=== PATIENT | female | born 1955 | race Two or more races ===

== ENCOUNTER 2018-03-31 16:48 | Inpatient (IN) | payer OTHER ==
[~2018-03-31] VITALS: Ht 165.1 cm; Wt 95.2 kg
[~2018-03-31 16:48] MED LIST: AMLO10 PO; COLE1 PO; Cymbalta20 MG PO; ESOM20 PO; FARXIGA5 MG PO; FOLI1 PO; GLIP5 PO; HYOS.125; HYOSCYAMINE SULFATE; LEVSOD100 PO; LOPE2C PO; LOSA50 PO; MESA250ER PO; Nadolol40 MG PO; OXYB5 PO; PANT40 PO; POTA10T PO; RANI150 PO; VENL150ER PO
[2018-03-31 18:15] LABS: BASOPHILS ABSOLUTE AUTO 0.06 K/mm3 (0.00-0.23); BASOPHILS PERCENT AUTO 1 % (0-2); EOSINOPHILS ABSOLUTE AUTO 0.11 K/mm3 (0.00-0.68); EOSINOPHILS PERCENT AUTO 1 % (0-6); Hematocrit 41.6 % (33.0-51.0); Hemoglobin 13.6 g/dL (11.5-16.0); IMMATURE GRAN ABSOLUTE AUTO 0.03 K/mm3 (0.00-0.10); IMMATURE GRAN PERCENT AUTO 0 % (0-1); LYMPHOCYTES ABSOLUTE AUTO 1.81 K/mm3 (0.84-5.20); LYMPHOCYTES PERCENT AUTO 22 % (21-46); MONOCYTES ABSOLUTE AUTO 0.59 K/mm3 (0.16-1.47); MONOCYTES PERCENT AUTO 7 % (4-13); Mean Corpuscular HGB Conc 32.7 g/dL (31.5-36.5); Mean Corpuscular Volume 86 fL (80-100); Mean Platelet Volume 11.9 fL (9.1-12.4); NEUTROPHILS ABSOLUTE AUTO 5.49 K/mm3 (1.96-9.15); NEUTROPHILS PERCENT AUTO 68 % (41-73); Platelet Count 111 K/mm3 (150-400); RDW Coefficient Variation 15.3 % (11.7-14.2); RDW Standard Deviation 48.2 fL (35.1-46.3); Red Blood Cell Count 4.86 M/mm3 (3.80-5.20); White Blood Cell Count 8.09 K/mm3 (4.00-11.30)
[2018-03-31 18:46] LABS: Alanine Aminotransfer (ALT/SGP 36 U/L (12-78); Albumin, Blood 3.3 g/dL (3.4-5.0); Albumin/Globulin Ratio 0.7 (0.8-1.8); Alk Phos 127 U/L (50-136); Anion Gap 9 mmol/L (6-16); Aspartate Aminotrans (AST/SGOT 41 U/L (12-37); Bilirubin, Total 0.9 mg/dL (0.1-1.0); Blood Urea Nitrogen 8 mg/dL (8-24); CO2, Blood 24 mmol/L (21-32); Calcium, Blood 8.8 mg/dL (8.5-10.1); Chloride, Blood 110 mmol/L (98-108); Creatinine, Blood 0.66 mg/dL (0.40-1.00); Globulin, Blood 4.6 g/dL (2.2-4.0); Glomerular Filtration Rate >60 (60-); Glucose, Blood 125 mg/dL (70-99); Potassium, Blood 3.8 mmol/L (3.5-5.5); Sodium, Blood 143 mmol/L (136-145); Total Protein, Blood 7.9 g/dL (6.4-8.2); Troponin I <0.015 ng/mL (0.000-0.040)
[2018-03-31 21:18] LABS: Source, Urine Clean Catch
[2018-03-31 21:20] LABS: Bilirubin, Urine Neg (Neg); Blood, Urine 1+ (Neg); Glucose Qualitative, Urine Neg (Neg); Ketones, Urine Neg (Neg); Leukocyte Esterase, Urine Neg (Neg); Nitrite, Urine Neg (Neg); Protein, Urine Neg (Neg); Urobilinogen, Urine NORM (Normal)
[2018-03-31 21:22] LABS: Appearance, Urine Clear (Clear); Color, Urine Yellow (P-Yellow)
[2018-03-31 21:31] LABS: Bacteria Rare /hpf; Calcium Oxalate Crystals Few /hpf; Red Blood Cells, Urine 0-2 /hpf (0-2); Squamous Epithelial Cells Mod /hpf (Few); White Blood Cells, Urine Rare /hpf (0-5)
[2018-03-31 23:44] LABS: International Normalized Ratio 1.08; Prothrombin Time Results 11.4 Sec (9.7-11.5)
[2018-03-31 23:50] LABS: Triglycerides 125 mg/dL (30-160)
[2018-04-01 05:19] LABS: Alanine Aminotransfer (ALT/SGP 40 U/L (12-78); Albumin, Blood 2.9 g/dL (3.4-5.0); Albumin/Globulin Ratio 0.7 (0.8-1.8); Alk Phos 117 U/L (50-136); Anion Gap 7 mmol/L (6-16); Aspartate Aminotrans (AST/SGOT 49 U/L (12-37); Blood Urea Nitrogen 9 mg/dL (8-24); Bun/Creatinine Ratio 12.4 (12.0-20.0); CO2, Blood 25 mmol/L (21-32); Calcium, Blood 7.8 mg/dL (8.5-10.1); Chloride, Blood 113 mmol/L (98-108); Creatinine, Blood 0.72 mg/dL (0.40-1.00); Globulin, Blood 4.1 g/dL (2.2-4.0); Glomerular Filtration Rate >60 (60-); Glucose, Blood 142 mg/dL (70-99); Potassium, Blood 4.1 mmol/L (3.5-5.5); Sodium, Blood 145 mmol/L (136-145)
== END 2018-04-02 12:00 | disposition home or self-care (01) | DRG 385 ==
LOC: ER 16:48 → SURS 23:15
PROVIDERS: Emergency Medicine; Nurse Practitioner Acute Care; Physician Assistant; ADMIT Internal Medicine
DX: K50.012 Crohn's disease of small intestine with intestinal obstruction (principal); K85.90 Acute pancreatitis without necrosis or infection, unspecified; I10 Essential (primary) hypertension; K74.60 Unspecified cirrhosis of liver; E11.9 Type 2 diabetes mellitus without complications; E03.9 Hypothyroidism, unspecified; Z88.8 Allergy status to other drugs, medicaments and biological substances; Z87.891 Personal history of nicotine dependence
CPT/HCPCS: 36415; 74018; 74177; 80053; 81001; 82947; 83690; 84478; 84484; 85025; 85610; 93005; 93010; 96361; 96374; 96375; 96376; 99285-25; C9113; J1170; J2405; J7030; Q9967

== ENCOUNTER → 2019-07-10 | Outpatient (CLI) | payer OTHER ==
[~2019-07-10] MED LIST changes: +ALBU90OI INH; +AMLO5 PO; +CLON.1 PO; +DULO60 PO; +Estroven Regu400 MCG PO; +FARXIGA10 MG PO; +FEROSUL325 M1 PO; +GABA100 PO; +GLIP10 PO; +HYDCHL12.5 PO; +Lasix20 MG PO; +METO25 PO; +PARO20 PO; +PIOG30 PO; +POTCHL20ER PO; +XARELTO20 MG PO
== END | disposition home or self-care (01) ==
LOC: PLD 10:01 → LAB SHORT 10:01
DX: B35.1 Tinea unguium (principal)
CPT/HCPCS: 88305; 88312

== ENCOUNTER 2019-07-14 19:36 | Observation (INO) | payer OTHER ==
[~2019-07-14] VITALS: Ht 165.1 cm; Wt 98.2 kg
[~2019-07-14 19:36] MED LIST changes: -FARXIGA10 MG PO; -POTCHL20ER PO
[2019-07-14 20:11] LABS: BASOPHILS ABSOLUTE AUTO 0.07 K/mm3 (0.00-0.23); BASOPHILS PERCENT AUTO 1 % (0-2); EOSINOPHILS ABSOLUTE AUTO 0.24 K/mm3 (0.00-0.68); EOSINOPHILS PERCENT AUTO 2 % (0-6); Hematocrit 41.4 % (33.0-51.0); Hemoglobin 13.4 g/dL (11.5-16.0); IMMATURE GRAN ABSOLUTE AUTO 0.04 K/mm3 (0.00-0.10); IMMATURE GRAN PERCENT AUTO 0 % (0-1); LYMPHOCYTES ABSOLUTE AUTO 3.29 K/mm3 (0.84-5.20); LYMPHOCYTES PERCENT AUTO 28 % (21-46); MONOCYTES ABSOLUTE AUTO 0.86 K/mm3 (0.16-1.47); MONOCYTES PERCENT AUTO 7 % (4-13); Mean Corpuscular HGB 28.2 pg (26.0-34.0); Mean Corpuscular HGB Conc 32.4 g/dL (31.5-36.5); Mean Corpuscular Volume 87 fL (80-100); NEUTROPHILS PERCENT AUTO 62 % (41-73); Platelet Count 139 K/mm3 (150-400); RDW Coefficient Variation 14.5 % (11.7-14.2); RDW Standard Deviation 45.9 fL (35.1-46.3); Red Blood Cell Count 4.75 M/mm3 (3.80-5.20)
[2019-07-14 20:30] LABS: Alanine Aminotransfer (ALT/SGP 36 U/L (12-78); Albumin, Blood 3.2 g/dL (3.4-5.0); Albumin/Globulin Ratio 0.7 (0.8-1.8); Alk Phos 113 U/L (50-136); Anion Gap 7 mmol/L (6-16); Aspartate Aminotrans (AST/SGOT 40 U/L (12-37); Bilirubin, Total 1.2 mg/dL (0.1-1.0); Blood Urea Nitrogen 9 mg/dL (8-24); Bun/Creatinine Ratio 12.1 (12.0-20.0); CO2, Blood 29 mmol/L (21-32); Calcium, Blood 9.1 mg/dL (8.5-10.1); Chloride, Blood 106 mmol/L (98-108); Creatinine, Blood 0.74 mg/dL (0.40-1.00); Globulin, Blood 4.9 g/dL (2.2-4.0); Glomerular Filtration Rate >60 (60-); Glucose, Blood 86 mg/dL (70-99); Potassium, Blood 2.9 mmol/L (3.5-5.5); Sodium, Blood 142 mmol/L (136-145); Total Protein, Blood 8.1 g/dL (6.4-8.2)
[2019-07-14] MEDS ORDERED: POTCHL20ER PO (20:45)
[2019-07-14 21:24] LABS: Source, Urine Clean Catch
[2019-07-14 21:26] LABS: Blood, Urine Neg (Neg); Glucose Qualitative, Urine Neg (Neg); Ketones, Urine Neg (Neg); Leukocyte Esterase, Urine 2+ (Neg); Nitrite, Urine Neg (Neg); Protein, Urine 1+ (Neg); Urobilinogen, Urine NORM (Normal)
[2019-07-14 21:27] LABS: Appearance, Urine Clear (Clear); Bilirubin, Urine 1+ (Neg); Color, Urine Yellow (P-Yellow)
[2019-07-14 21:33] LABS: Amorphous Light (0-Heavy); Bacteria Few /hpf; Mucus Light (0-Heavy); Red Blood Cells, Urine Not Seen /hpf (0-2); Squamous Epithelial Cells Few /hpf (Few)
[2019-07-14 22:05] LABS: Magnesium, Blood 1.9 mg/dL (1.6-2.4)
--- NOTE | 2019-07-15 00:30 | NUR ---
ARRIVAL TO UNIT PT ARRIVED TO UNIT VIA GURNEY, PT TRANSFERED SELF TO BED, NO WEAKNESS NOTED. PT DENIES PAIN AND NAUSEA AT THIS TIME. PT AWARE OF NPO ORDERS. EDUCATED DREDGE MASTER LIGHT, PLACED IN REACH. POTASSIUM INFUSING WITH NS ON ARRIVAL, SECOND BAG OF POTASSIUM AND IV BAG OF MAGNESIUM SENT FROM ER. SPOKE WITH DR. GUILLORY TO CONFIRM ORDERS FOR MAGNESIUM. WILL ADMINISTER ORDERED. PT DENIES OTHER NEEDS AT THIS TIME. PT HAS CONTINOUS HEART MONITOR IN PLACE ON UPPER LEFT CHEST SHE WILL WEAR FOR 1 MONTH PER PT REPORT.
[2019-07-15 04:11] LABS: BASOPHILS ABSOLUTE AUTO 0.03 K/mm3 (0.00-0.23); BASOPHILS PERCENT AUTO 0 % (0-2); EOSINOPHILS ABSOLUTE AUTO 0.18 K/mm3 (0.00-0.68); EOSINOPHILS PERCENT AUTO 2 % (0-6); Hematocrit 37.8 % (33.0-51.0); Hemoglobin 12.1 g/dL (11.5-16.0); IMMATURE GRAN ABSOLUTE AUTO 0.03 K/mm3 (0.00-0.10); IMMATURE GRAN PERCENT AUTO 0 % (0-1); LYMPHOCYTES ABSOLUTE AUTO 1.66 K/mm3 (0.84-5.20); LYMPHOCYTES PERCENT AUTO 15 % (21-46); MONOCYTES ABSOLUTE AUTO 0.75 K/mm3 (0.16-1.47); MONOCYTES PERCENT AUTO 7 % (4-13); Mean Corpuscular HGB 28.2 pg (26.0-34.0); Mean Corpuscular Volume 88 fL (80-100); Mean Platelet Volume 12.1 fL (9.1-12.4); NEUTROPHILS ABSOLUTE AUTO 8.18 K/mm3 (1.96-9.15); NEUTROPHILS PERCENT AUTO 76 % (41-73); Platelet Count 119 K/mm3 (150-400); RDW Coefficient Variation 14.6 % (11.7-14.2); RDW Standard Deviation 46.7 fL (35.1-46.3); Red Blood Cell Count 4.29 M/mm3 (3.80-5.20); White Blood Cell Count 10.83 K/mm3 (4.00-11.30)
[2019-07-15 04:29] LABS: Anion Gap 5 mmol/L (6-16); Blood Urea Nitrogen 9 mg/dL (8-24); Bun/Creatinine Ratio 13.6 (12.0-20.0); CO2, Blood 29 mmol/L (21-32); Calcium, Blood 8.3 mg/dL (8.5-10.1); Chloride, Blood 108 mmol/L (98-108); Creatinine, Blood 0.66 mg/dL (0.40-1.00); Glomerular Filtration Rate >60 (60-); Glucose, Blood 77 mg/dL (70-99); Potassium, Blood 3.4 mmol/L (3.5-5.5); Sodium, Blood 142 mmol/L (136-145)
--- NOTE | 2019-07-15 05:02 | NUR ---
SHIFT SUMMARY NO ACUTE CHANGES SINCE ARRIVAL TO UNIT. PATIENT HAS RECEIVED HER SECOND POTASSIUM INFUSION AND FINISHED HER MAGNESIUM. PT HAS BEEN RESTING IN BED DURING SHIFT. UP TO THE RESTROOM ONCE, NO WEAKNESS NOTED. SR AT 62 PER INTEGRITY ASSESSOR. SCD'S IN PLACE. PT CALLS APPROPRIATLY.
[2019-07-15] MEDS ORDERED: FARXIGA10 MG PO (15:22)
--- NOTE | 2019-07-15 15:42 | NUR ---
TOLERATED CLEAR LIQUIDS WELL, PT TO DC HOME, DC INSRUCTIONS GIVEN, VERBALIZED UNDERSTANDING.
== END 2019-07-15 16:00 | disposition home or self-care (01) ==
LOC: ER 19:36 → SURS 19:37
PROVIDERS: Emergency Medicine; Nurse Practitioner Acute Care; ADMIT Internal Medicine
DX: K91.30 Postprocedural intestinal obstruction, unspecified as to partial versus complete (principal); Y83.4 Other reconstructive surgery as the cause of abnormal reaction of the patient, or of later complication, without mention of misadventure at the time of the procedure; E11.9 Type 2 diabetes mellitus without complications; I10 Essential (primary) hypertension; E03.9 Hypothyroidism, unspecified; Z88.6 Allergy status to analgesic agent; Z88.1 Allergy status to other antibiotic agents; Z79.899 Other long term (current) drug therapy; Z79.01 Long term (current) use of anticoagulants; Z79.84 Long term (current) use of oral hypoglycemic drugs; E66.9 Obesity, unspecified; K21.9 Gastro-esophageal reflux disease without esophagitis; K70.31 Alcoholic cirrhosis of liver with ascites
CPT/HCPCS: 36415; 74176; 80048; 80053; 81001; 82947; 83690; 83735; 85025; 87077; 87086; 87186; 96361; 96365; 96375; 99285-25; A9270-GY; C9113; G0378; J1170; J3475; J3480; J7030

== ENCOUNTER 2020-01-08 08:31 | Day surgery (SDC) | payer OTHER ==
[~2020-01-08 08:31] MED LIST changes: +FARXIGA10 MG PO; +POTCHL20ER PO
[2020-01-09] MEDS ORDERED: METO25ER PO (10:12)
[2020-01-09] MEDS ORDERED: XARELTO20 MG PO (10:12)
[2020-01-09] MEDS ORDERED: HYDCHL25 PO (10:12)
[2020-01-09] MEDS ORDERED: LOSA50 PO (10:14)
[2020-01-09] MEDS ORDERED: SYNTHROID100 MC3 PO (10:15)
[2020-01-09] MEDS ORDERED: FOLI1 PO (10:15)
[2020-01-09] MEDS ORDERED: DULO60 PO (10:16)
[2020-01-09] MEDS ORDERED: CYAN1000I IM (10:16)
[2020-01-09] MEDS ORDERED: PANT40 PO (10:16)
[2020-01-09] MEDS ORDERED: GLIP10 PO (10:17)
[2020-01-09] MEDS ORDERED: POTA10T PO (10:17)
[2020-01-09] MEDS ORDERED: VITAMIN D310 MC4 PO (10:17)
[2020-01-09] MEDS ORDERED: OMEGA-3100 MG PO (10:17)
[2020-01-09] MEDS ORDERED: GABA300 PO (10:48)
[2020-01-09] MEDS ORDERED: OXYB5 PO (10:48)
[2020-01-09] MEDS ORDERED: PARO25 PO (10:48)
[2020-01-09] MEDS ORDERED: FURO20 PO (10:48)
[2020-01-09] MEDS ORDERED: BUTALB-ACETAMI1 EAC5 PO (10:49)
[2020-01-09] MEDS ORDERED: CLON.2 PO (10:49)
[2020-01-09] MEDS ORDERED: GLIP5 PO (10:49)
[2020-01-09] MEDS ORDERED: TRAM50 PO (10:50)
== END 2020-01-08 12:00 | disposition home or self-care (01) ==
LOC: MOI US 08:31
DX: D24.2 Benign neoplasm of left breast (principal); Z79.51 Long term (current) use of inhaled steroids; Z79.84 Long term (current) use of oral hypoglycemic drugs; Z79.899 Other long term (current) drug therapy; Z51.5 Encounter for palliative care
CPT/HCPCS: 19285; 77065

== ENCOUNTER 2020-01-12 08:48 | Day surgery (SDC) | payer OTHER ==
[~2020-01-12] VITALS: Ht 165.1 cm; Wt 97.6 kg
[~2020-01-12 08:48] MED LIST changes: +BUTALB-ACETAMI1 EAC5 PO; +CLON.2 PO; +CYAN1000I IM; +FURO20 PO; +GABA300 PO; +HYDCHL25 PO; +METO25ER PO; +OMEGA-3100 MG PO; +PARO25 PO; +SYNTHROID100 MC3 PO; +TRAM50 PO; +VITAMIN D310 MC4 PO
--- NOTE | 2020-01-12 12:30 | NUR ---
PT HAS TAKEN SIPS OF CRANBERRY JUICE. DRESSINGS DRY AND INTACT. PT DENIES PAIN A THIS TIME. BINDER IN PLACE. PT FALLS ASLEEP QUICKLY BUT ROUSES TO VERBAL STIMULI. WILL CONTINUE TO MONITOR PT
--- NOTE | 2020-01-12 13:16 | NUR ---
Patient States Post-Procedure ride home has been arranged. Discharge instructions reviewed with patient. Patient verbalizes understanding. Copy given to patient to take home. Discharged via wheelchair to private car for ride home.
== END 2020-01-12 13:15 | disposition home or self-care (01) ==
LOC: ORSCMMR 08:48 → ORD 10:00 → ORSCMMR 13:15
PROVIDERS: Surgery
PROC: 0HBU0ZX Excision of Left Breast, Open Approach, Diagnostic (ICD-10-PCS; principal; 2020-01-12 10:00)
DX: D24.2 Benign neoplasm of left breast (principal); I10 Essential (primary) hypertension; E11.9 Type 2 diabetes mellitus without complications; E03.9 Hypothyroidism, unspecified; I48.91 Unspecified atrial fibrillation; Z79.01 Long term (current) use of anticoagulants; M79.7 Fibromyalgia; Z79.899 Other long term (current) drug therapy; E66.9 Obesity, unspecified; Z68.35 Body mass index [BMI] 35.0-35.9, adult
CPT/HCPCS: 82947; 88307; J0690; J1100; J2250; J2405; J2704; J3010; J7120

== ENCOUNTER 2020-03-06 06:35 | Emergency (ER) | payer OTHER ==
[~2020-03-06] VITALS: Ht 165.1 cm; Wt 95.2 kg
[2020-03-06] MEDS ORDERED: IBUP800 PO (07:30)
== END 2020-03-06 07:35 | disposition home or self-care (01) ==
LOC: ER 06:35
DX: S80.02XA Contusion of left knee, initial encounter (principal); Z88.6 Allergy status to analgesic agent; Z88.1 Allergy status to other antibiotic agents; Z88.8 Allergy status to other drugs, medicaments and biological substances; Z79.01 Long term (current) use of anticoagulants; Z79.84 Long term (current) use of oral hypoglycemic drugs; Z79.899 Other long term (current) drug therapy; Z87.891 Personal history of nicotine dependence; W01.0XXA Fall on same level from slipping, tripping and stumbling without subsequent striking against object, initial encounter
CPT/HCPCS: 73564; 99283-25

== ENCOUNTER → 2020-08-09 | Outpatient (CLI) | payer OTHER ==
[~2020-08-09] MED LIST changes: +ALDACTONE25 MG PO; +ALOGLIPTIN25 M1 PO; +B-12 COMPL1000 MCG/2 IM; +Bumetanide2 MG PO; +GLUCHON PO; +IBUP800 PO; +LACT10SY PO; +MAGNESIUM OXID400 M1 PO; +SPIR50 PO; +TUMS500 MG PO
[2020-08-09 12:31] LABS: BASOPHILS ABSOLUTE AUTO 0.07 K/mm3 (0.00-0.23); BASOPHILS PERCENT AUTO 1 % (0-2); EOSINOPHILS ABSOLUTE AUTO 0.11 K/mm3 (0.00-0.68); EOSINOPHILS PERCENT AUTO 1 % (0-6); Hematocrit 31.1 % (33.0-51.0); Hemoglobin 10.2 g/dL (11.5-16.0); IMMATURE GRAN ABSOLUTE AUTO 0.03 K/mm3 (0.00-0.10); IMMATURE GRAN PERCENT AUTO 0 % (0-1); LYMPHOCYTES ABSOLUTE AUTO 1.41 K/mm3 (0.84-5.20); LYMPHOCYTES PERCENT AUTO 17 % (21-46); MONOCYTES ABSOLUTE AUTO 0.56 K/mm3 (0.16-1.47); MONOCYTES PERCENT AUTO 7 % (4-13); Mean Corpuscular HGB 26.1 pg (26.0-34.0); Mean Corpuscular HGB Conc 32.8 g/dL (31.5-36.5); Mean Corpuscular Volume 80 fL (80-100); Mean Platelet Volume 11.9 fL (9.1-12.4); NEUTROPHILS ABSOLUTE AUTO 6.11 K/mm3 (1.96-9.15); NEUTROPHILS PERCENT AUTO 74 % (41-73); Platelet Count 188 K/mm3 (150-400); RDW Coefficient Variation 20.7 % (11.7-14.2); RDW Standard Deviation 59.7 fL (35.1-46.3); Red Blood Cell Count 3.91 M/mm3 (3.80-5.20); White Blood Cell Count 8.29 K/mm3 (4.00-11.30)
== END | disposition home or self-care (01) ==
LOC: LAB SHORT 12:25 → LAB EV 12:25
PROVIDERS: Physician Assistant
DX: K92.1 Melena (principal)
CPT/HCPCS: 85025

== ENCOUNTER 2020-08-14 00:57 | Inpatient (IN) | payer OTHER ==
[~2020-08-14] VITALS: Ht 165.1 cm; Wt 99.8 kg
[~2020-08-14 00:57] MED LIST changes: -ALDACTONE25 MG PO; -ALOGLIPTIN25 M1 PO; -B-12 COMPL1000 MCG/2 IM; -Bumetanide2 MG PO; -GLUCHON PO; -LACT10SY PO; -MAGNESIUM OXID400 M1 PO; -SPIR50 PO; -TUMS500 MG PO
[2020-08-14 01:56] LABS: BASOPHILS ABSOLUTE AUTO 0.09 K/mm3 (0.00-0.23); BASOPHILS PERCENT AUTO 1 % (0-2); EOSINOPHILS PERCENT AUTO 2 % (0-6); Hematocrit 29.8 % (33.0-51.0); Hemoglobin 9.9 g/dL (11.5-16.0); IMMATURE GRAN ABSOLUTE AUTO 0.03 K/mm3 (0.00-0.10); IMMATURE GRAN PERCENT AUTO 0 % (0-1); LYMPHOCYTES PERCENT AUTO 22 % (21-46); MONOCYTES ABSOLUTE AUTO 1.01 K/mm3 (0.16-1.47); MONOCYTES PERCENT AUTO 10 % (4-13); Mean Corpuscular HGB 26.6 pg (26.0-34.0); Mean Corpuscular HGB Conc 33.2 g/dL (31.5-36.5); Mean Corpuscular Volume 80 fL (80-100); Mean Platelet Volume 11.2 fL (9.1-12.4); NEUTROPHILS ABSOLUTE AUTO 7.03 K/mm3 (1.96-9.15); NEUTROPHILS PERCENT AUTO 66 % (41-73); Platelet Count 175 K/mm3 (150-400); RDW Coefficient Variation 20.6 % (11.7-14.2); RDW Standard Deviation 60.1 fL (35.1-46.3); Red Blood Cell Count 3.72 M/mm3 (3.80-5.20); White Blood Cell Count 10.66 K/mm3 (4.00-11.30)
[2020-08-14 02:14] LABS: Albumin, Blood 2.3 g/dL (3.4-5.0); Albumin/Globulin Ratio 0.5 (0.8-1.8); Bilirubin, Total 2.7 mg/dL (0.1-1.0); Bun/Creatinine Ratio 6.6 (12.0-20.0); Creatinine, Blood 1.21 mg/dL (0.40-1.00); Potassium, Blood 2.7 mmol/L (3.5-5.5); Total Protein, Blood 7.3 g/dL (6.4-8.2)
[2020-08-14 03:01] LABS: Magnesium, Blood 1.4 mg/dL (1.6-2.4)
[2020-08-14 03:12] LABS: International Normalized Ratio 1.37; Prothrombin Time Results 14.5 Sec (9.7-11.5)
[2020-08-14 04:37] LABS: BASOPHILS ABSOLUTE AUTO 0.08 K/mm3 (0.00-0.23); BASOPHILS PERCENT AUTO 1 % (0-2); EOSINOPHILS ABSOLUTE AUTO 0.16 K/mm3 (0.00-0.68); EOSINOPHILS PERCENT AUTO 2 % (0-6); Hematocrit 29.4 % (33.0-51.0); Hemoglobin 9.4 g/dL (11.5-16.0); IMMATURE GRAN ABSOLUTE AUTO 0.03 K/mm3 (0.00-0.10); IMMATURE GRAN PERCENT AUTO 0 % (0-1); LYMPHOCYTES ABSOLUTE AUTO 1.99 K/mm3 (0.84-5.20); LYMPHOCYTES PERCENT AUTO 21 % (21-46); MONOCYTES ABSOLUTE AUTO 0.78 K/mm3 (0.16-1.47); MONOCYTES PERCENT AUTO 8 % (4-13); Mean Corpuscular HGB 25.9 pg (26.0-34.0); Mean Corpuscular Volume 81 fL (80-100); Mean Platelet Volume 11.2 fL (9.1-12.4); NEUTROPHILS ABSOLUTE AUTO 6.54 K/mm3 (1.96-9.15); NEUTROPHILS PERCENT AUTO 68 % (41-73); Platelet Count 174 K/mm3 (150-400); RDW Coefficient Variation 20.5 % (11.7-14.2); RDW Standard Deviation 59.8 fL (35.1-46.3); Red Blood Cell Count 3.63 M/mm3 (3.80-5.20); White Blood Cell Count 9.58 K/mm3 (4.00-11.30)
[2020-08-14 04:59] LABS: Albumin, Blood 2.2 g/dL (3.4-5.0); Albumin/Globulin Ratio 0.4 (0.8-1.8); Bilirubin, Total 2.5 mg/dL (0.1-1.0); Bun/Creatinine Ratio 5.7 (12.0-20.0); Calcium, Blood 7.8 mg/dL (8.5-10.1); Creatinine, Blood 1.23 mg/dL (0.40-1.00); Globulin, Blood 4.9 g/dL (2.2-4.0); Potassium, Blood 2.9 mmol/L (3.5-5.5); Total Protein, Blood 7.1 g/dL (6.4-8.2)
--- NOTE | 2020-08-14 05:18 | NUR ---
SHIFT SUMMARY PT ER ADMIT THIS SHIFT FOR SBO. SHE HAS COMPLAINTS OF ABD AND NAUSEA, NO VOMITTING SINCE ADMISSION. PT POTASSIUM AND MAGNESIUM BEING REPLACED AT THIS TIME. BOWEL TONES ARE HYPERATIVE. PT NSR ON TELE, RESP E/U ON RA. PT TO RECEIVE MAINTENANCE FLUIDS AND IV ALBUMIN. PT ABD IS SEVERELY DISTENDED D/T PMH OF CIRRHOSIS. PLAN IS FOR PARACENTESIS TODAY. PT A/OX4, INDEPNDENT IN THE ROOM. PLESANT AND COOPERATIVE WITH CARE. BED IN LOWEST POSITION, CALL LIGHT WITHIN REACH.
--- NOTE | 2020-08-14 08:38 | NUR ---
SM AMOUNT BLD IN TOILET W.SMEAR STOOL.HX HEMORROIDS. WCTM
[2020-08-14 10:02] LABS: Automated BF WBC Count 0.107 K/mm3 (0-999); Body Fluid WBC Count 107 /mm3 (0-999)
[2020-08-14 10:08] LABS: Albumin, Body Fluid 0.3 g/dL; Amylase, Body Fluid 9 U/L; Glucose, Body Fluid 179 mg/dL; Lactate Dehydrogenase, Body Fl 40 U/L
[2020-08-14 10:17] LABS: RBC Count, Body Fluid 77 /mm3 (0-0)
[2020-08-14 10:52] LABS: Appearance, Body Fluid Clear (Clear); Color, Body Fluid Yellow (None-Yellow); Total Cell Count, Body Fluid 100
--- NOTE | 2020-08-14 15:12 | NUR ---
PER DR.SATHIANATHAN GREGORY FOR CLEAR LIQUID.
[2020-08-14 15:16] LABS: Albumin, Blood 2.4 g/dL (3.4-5.0); Albumin/Globulin Ratio 0.5 (0.8-1.8); Bilirubin, Total 2.6 mg/dL (0.1-1.0); Bun/Creatinine Ratio 5.4 (12.0-20.0); Calcium, Blood 7.9 mg/dL (8.5-10.1); Creatinine, Blood 1.11 mg/dL (0.40-1.00); Globulin, Blood 4.6 g/dL (2.2-4.0); Potassium, Blood 3.3 mmol/L (3.5-5.5)
--- NOTE | 2020-08-14 17:05 | NUR ---
ALERT. ORIENTED. TELE ON. POTASSIUM REPLACED. IV FLUIDS RUNNING. ON CLEAR LIQUIDS. HAD N/V AND PAIN, MEDICATED FOR NAUSEA WITH PAIN GOING AWAY WHEN NAUSEA RESOLVED. UNLABORED RESPIRATIONS. WCTM
[2020-08-15 04:58] LABS: International Normalized Ratio 1.39; Prothrombin Time Results 14.7 Sec (9.7-11.5)
[2020-08-15 05:28] LABS: BASOPHILS ABSOLUTE AUTO 0.04 K/mm3 (0.00-0.23); BASOPHILS PERCENT AUTO 1 % (0-2); EOSINOPHILS ABSOLUTE AUTO 0.24 K/mm3 (0.00-0.68); EOSINOPHILS PERCENT AUTO 5 % (0-6); Hematocrit 28.2 % (33.0-51.0); Hemoglobin 9.1 g/dL (11.5-16.0); IMMATURE GRAN ABSOLUTE AUTO 0.01 K/mm3 (0.00-0.10); IMMATURE GRAN PERCENT AUTO 0 % (0-1); LYMPHOCYTES ABSOLUTE AUTO 1.16 K/mm3 (0.84-5.20); LYMPHOCYTES PERCENT AUTO 22 % (21-46); MONOCYTES ABSOLUTE AUTO 0.47 K/mm3 (0.16-1.47); MONOCYTES PERCENT AUTO 9 % (4-13); Mean Corpuscular HGB 26.4 pg (26.0-34.0); Mean Corpuscular HGB Conc 32.3 g/dL (31.5-36.5); Mean Corpuscular Volume 82 fL (80-100); Mean Platelet Volume 11.1 fL (9.1-12.4); NEUTROPHILS PERCENT AUTO 64 % (41-73); Platelet Count 142 K/mm3 (150-400); RDW Coefficient Variation 20.9 % (11.7-14.2); Red Blood Cell Count 3.45 M/mm3 (3.80-5.20); White Blood Cell Count 5.32 K/mm3 (4.00-11.30)
[2020-08-15 05:51] LABS: Albumin, Blood 2.2 g/dL (3.4-5.0); Albumin/Globulin Ratio 0.5 (0.8-1.8); Bilirubin, Total 2.1 mg/dL (0.1-1.0); Bun/Creatinine Ratio 4.5 (12.0-20.0); Calcium, Blood 7.7 mg/dL (8.5-10.1); Creatinine, Blood 1.1 mg/dL (0.40-1.00); Globulin, Blood 4.4 g/dL (2.2-4.0); Potassium, Blood 2.9 mmol/L (3.5-5.5); Total Protein, Blood 6.6 g/dL (6.4-8.2)
[2020-08-15 06:14] LABS: Magnesium, Blood 1.7 mg/dL (1.6-2.4); Phosphorus, Blood 2.9 mg/dL (2.5-4.9)
--- NOTE | 2020-08-15 06:42 | NUR ---
SHIFT SUMMARY PATIENT ALERT AND ORIENTED. WAS MEDICATED PER EMAR FOR NAUSEA. NO COMPLAINTS OF PAIN OR SHORTNESS OF BREATH. PATIENT SLEPT WELL OVERNIGHT. NO ACUTE ISSUES NOTED. IV PATENT AND FLUSHED. BED IN LOWEST POSITION WITH WHEELS LOCKED. CALL LIGHT WITHIN REACH. REPORT GIVEN TO ONCOMING RN.
--- NOTE | 2020-08-15 07:18 | NUR ---
LEFT VOICE MAIL MESSAGE ON DR. CULVER'S PHONE THAT POTASSIUM WAS 2.9 THIS AM.
--- NOTE | 2020-08-15 09:31 | NUR ---
IN TO SEE
--- NOTE | 2020-08-15 10:19 | NUR ---
PATIENT AWARE TO LET US KNOW ABOUT USING BATHROOM ON 24 HOUR URINE FOR LAB.
--- NOTE | 2020-08-15 13:12 | NUR ---
24 HOUR URINE STARTED AT 1310.
--- NOTE | 2020-08-15 15:03 | NUR ---
PER DR.KUMAR GREGORY TO HAVE ECHO ANY DAY. PER DR.SATHIANATHAN GREGORY TO START ALBUMIN 12.5 AT 6PM. AWARE PATIENT DID NOT GET ANY ALBUMIN EARLIER.
[2020-08-15 16:09] LABS: Bun/Creatinine Ratio 4.4 (12.0-20.0); Calcium, Blood 7.7 mg/dL (8.5-10.1); Creatinine, Blood 1.14 mg/dL (0.40-1.00); Potassium, Blood 3.1 mmol/L (3.5-5.5)
--- NOTE | 2020-08-15 16:09 | NUR ---
Echocardiogram completed.
--- NOTE | 2020-08-15 17:38 | NUR ---
PER DR.SATHIANATHAN Ernesto BEAN, CHANGE COZAAR TO 12.5 DAILY, ADD PROPRANOLOL 10 MG TID STARTING TOMORROW. GIVE LASIX AND ALDACTONE TONIGHT AFTER ALBUMIN IN.
--- NOTE | 2020-08-15 18:45 | NUR ---
ALERT. ORIENTED. PLEASANT. ABLE TO MAKE NEEDS KNOWN. AWARE NEEDS NEW IV, CURRENTLY HAS 22 GA. NO N/V OR PAIN. UNLABORED RESPIRATIONS. NEPHROLOGY FOLLOWING. WCTM
--- NOTE | 2020-08-15 23:31 | NUR ---
PHYSICIAN COMMUNICATION REPORTED PATIENT'S MOST RECENT POTASSIUM LEVEL TO DR VELÁZQUEZ. HE ORDERED 30 MEQ POTASSIUM IV TO BE GIVEN.
[2020-08-16 04:39] LABS: BASOPHILS ABSOLUTE AUTO 0.05 K/mm3 (0.00-0.23); BASOPHILS PERCENT AUTO 1 % (0-2); EOSINOPHILS ABSOLUTE AUTO 0.21 K/mm3 (0.00-0.68); EOSINOPHILS PERCENT AUTO 3 % (0-6); Hematocrit 27.1 % (33.0-51.0); Hemoglobin 8.8 g/dL (11.5-16.0); IMMATURE GRAN ABSOLUTE AUTO 0.01 K/mm3 (0.00-0.10); IMMATURE GRAN PERCENT AUTO 0 % (0-1); LYMPHOCYTES ABSOLUTE AUTO 1.58 K/mm3 (0.84-5.20); LYMPHOCYTES PERCENT AUTO 24 % (21-46); MONOCYTES ABSOLUTE AUTO 0.73 K/mm3 (0.16-1.47); MONOCYTES PERCENT AUTO 11 % (4-13); Mean Corpuscular HGB 26.5 pg (26.0-34.0); Mean Corpuscular HGB Conc 32.5 g/dL (31.5-36.5); Mean Corpuscular Volume 82 fL (80-100); Mean Platelet Volume 11.3 fL (9.1-12.4); NEUTROPHILS ABSOLUTE AUTO 3.95 K/mm3 (1.96-9.15); NEUTROPHILS PERCENT AUTO 60 % (41-73); Platelet Count 140 K/mm3 (150-400); RDW Coefficient Variation 20.5 % (11.7-14.2); Red Blood Cell Count 3.32 M/mm3 (3.80-5.20); White Blood Cell Count 6.53 K/mm3 (4.00-11.30)
[2020-08-16 04:57] LABS: Albumin, Blood 2.3 g/dL (3.4-5.0); Albumin/Globulin Ratio 0.6 (0.8-1.8); Bilirubin, Direct 0.7 mg/dL (0.0-0.3); Bilirubin, Total 1.7 mg/dL (0.1-1.0); Bun/Creatinine Ratio 3.6 (12.0-20.0); Calcium, Blood 7.4 mg/dL (8.5-10.1); Creatinine, Blood 1.11 mg/dL (0.40-1.00); Magnesium, Blood 1.4 mg/dL (1.6-2.4); Phosphorus, Blood 2.9 mg/dL (2.5-4.9); Total Protein, Blood 6.3 g/dL (6.4-8.2)
--- NOTE | 2020-08-16 06:41 | NUR ---
SHIFT SUMMARY PATIENT ALERT AND ORIENTED. HAD NO COMPLAINTS OF PAIN OR SHORTNESS OF BREATH. NO REPORTS OF NAUSEA OR VOMITING. PATIENT SLEPT WELL OVERNIGHT WITH NO ACUTE ISSUES NOTED. IV PATENT AND FLUSHED. BED IN LOWEST POSITION WITH WHEELS LOCKED. CALL LIGHT WITHIN REACH. REPORT GIVEN TO ONCOMING RN.
[2020-08-16 13:50] LABS: Protein, Urine Quantitative 7.2 mg/dL (0.0-11.9)
--- NOTE | 2020-08-16 17:21 | NUR ---
Update 08/16/20 1714: Per chart review with Dr. Asif this am, pt. not quite ready for discharge today.Care management assessment: Spoke with pt. PLOF: Lives with spouse in single story dwelling. Support: Excellent support system in place with family and friends.Denied concerns with returning home. Denied concerns with utilities.No barriars to mobility or safety. Transportation: Patient's will provide transportation at time of discharge.[facility]armacy: [facility]. will nut picker any medications. No additional barriars to care or discharge. Scheduled for hospital F/U 08/22/20 at 2:40 pm.
--- NOTE | 2020-08-16 18:47 | NUR ---
SHIFT SUMMARY: NO ACUTE EVENTS TO REPORT THSI SHIFT. PT A&O; CALM AND COOPERATIVE WITH CARE. NO C/O PAIN OR NAUSEA THIS SHIFT; TOLERATING DIET; DIET ADVANCED TO ADA AT DINNER. TELE IN PLACE; SR. NEPHROLOGY (DR VELÁZQUEZ) FOLLOWING. WCTM.
[2020-08-16 23:10] LABS: Magnesium, Blood 1.4 mg/dL (1.6-2.4); Phosphorus, Blood 2.8 mg/dL (2.5-4.9); Potassium, Blood 3.1 mmol/L (3.5-5.5)
--- NOTE | 2020-08-17 04:03 | NUR ---
SHIFT SUMMARY NO ACUTE CHANGES THIS SHIFT, NO C/O ANY KIND, SLEPT T/O THE NIGHT WAKING FOR CARE & EASILY RETURNING TO SLEEP; SLEEPING AT THIS TIME, CALL LIGHT IN REACH, WILL CONT TO MONITOR UNTIL REPORT GIVEN TO DAY RN.
[2020-08-17 05:43] LABS: BASOPHILS ABSOLUTE AUTO 0.05 K/mm3 (0.00-0.23); BASOPHILS PERCENT AUTO 1 % (0-2); EOSINOPHILS ABSOLUTE AUTO 0.16 K/mm3 (0.00-0.68); EOSINOPHILS PERCENT AUTO 3 % (0-6); Hematocrit 26.2 % (33.0-51.0); Hemoglobin 8.4 g/dL (11.5-16.0); IMMATURE GRAN ABSOLUTE AUTO 0.03 K/mm3 (0.00-0.10); IMMATURE GRAN PERCENT AUTO 1 % (0-1); LYMPHOCYTES ABSOLUTE AUTO 1.47 K/mm3 (0.84-5.20); LYMPHOCYTES PERCENT AUTO 24 % (21-46); MONOCYTES ABSOLUTE AUTO 0.64 K/mm3 (0.16-1.47); MONOCYTES PERCENT AUTO 10 % (4-13); Mean Corpuscular HGB 26.7 pg (26.0-34.0); Mean Corpuscular HGB Conc 32.1 g/dL (31.5-36.5); Mean Corpuscular Volume 83 fL (80-100); Mean Platelet Volume 11.3 fL (9.1-12.4); NEUTROPHILS ABSOLUTE AUTO 3.85 K/mm3 (1.96-9.15); NEUTROPHILS PERCENT AUTO 62 % (41-73); Platelet Count 127 K/mm3 (150-400); RDW Coefficient Variation 20.6 % (11.7-14.2); RDW Standard Deviation 62.8 fL (35.1-46.3); Red Blood Cell Count 3.15 M/mm3 (3.80-5.20)
[2020-08-17 06:14] LABS: Albumin, Blood 2.4 g/dL (3.4-5.0); Anion Gap 6 mmol/L (6-16); Blood Urea Nitrogen 4 mg/dL (8-24); Bun/Creatinine Ratio 3.4 (12.0-20.0); CO2, Blood 27 mmol/L (21-32); Calcium, Blood 7.3 mg/dL (8.5-10.1); Chloride, Blood 106 mmol/L (98-108); Creatinine, Blood 1.16 mg/dL (0.40-1.00); Glomerular Filtration Rate 50 (60-); Glucose, Blood 169 mg/dL (70-99); Magnesium, Blood 1.7 mg/dL (1.6-2.4); Phosphorus, Blood 2.6 mg/dL (2.5-4.9); Potassium, Blood 3.1 mmol/L (3.5-5.5); Sodium, Blood 139 mmol/L (136-145)
--- NOTE | 2020-08-17 19:12 | NUR ---
SHIFT SUMMARY MURRAY DENIED PAIN THIS SHIFT. HAD AND DAUGHTER VISIT. UP TO BR INDEPENDENTLY. SLIGHTLY LOW BP THIS MORNING IN 90S, 107 IN AFTERNOON. ONE DARK GREEN/BROWN BM THIS SHIFT. POTASSIUM INCREASED TO 3.4 AFTER K RIDERS. TELE DC'D. LIKELY DISCHARGE TOMORROW. CALL LIGHT IN REACH, REPORT GIVEN TO NIGHT NURSE
[2020-08-18 04:41] LABS: Hematocrit 25.2 % (33.0-51.0); Hemoglobin 8.2 g/dL (11.5-16.0)
[2020-08-18 04:59] LABS: Albumin, Blood 2.6 g/dL (3.4-5.0); Anion Gap 5 mmol/L (6-16); Blood Urea Nitrogen 4 mg/dL (8-24); Bun/Creatinine Ratio 3.4 (12.0-20.0); CO2, Blood 29 mmol/L (21-32); Calcium, Blood 7.6 mg/dL (8.5-10.1); Chloride, Blood 105 mmol/L (98-108); Creatinine, Blood 1.16 mg/dL (0.40-1.00); Glomerular Filtration Rate 50 (60-); Glucose, Blood 139 mg/dL (70-99); Magnesium, Blood 1.4 mg/dL (1.6-2.4); Phosphorus, Blood 2.4 mg/dL (2.5-4.9); Potassium, Blood 3.1 mmol/L (3.5-5.5); Sodium, Blood 139 mmol/L (136-145)
--- NOTE | 2020-08-18 05:10 | NUR ---
SHIFT SUMMARY NO ACUTE CHANGES THIS SHIFT, NO C/O ANY KIND, SLEPT T/O THE NIGHT & SLEEPING AT THIS TIME, CALL LIGHT IN REACH, WILL CONT TO MONITOR UNTIL REPORT GIVEN TO DAY RN.
[2020-08-18 13:40] LABS: Stool Occult Bld Immuno 1 Negative (NEGATIVE)
--- NOTE | 2020-08-18 19:11 | NUR ---
SHIFT SUMMARY MURRAY DENIED PAIN THIS SHIFT. HAD BM, GUIAC WAS NEGATIVE. DAUGHTER REALLY WANTS TO BE ON SPEAKER PHONE WITH DOCTOR COMMUNICATIONS, DR ALMEIDA MADE AWARE, PT IS OK WITH THIS. INDEP TO BR. CALL LIGHT IN REACH, REPORT GIVEN TO NIGHT NURSE
[2020-08-18 20:43] LABS: Magnesium, Blood 1.5 mg/dL (1.6-2.4); Phosphorus, Blood 2.5 mg/dL (2.5-4.9); Potassium, Blood 3.3 mmol/L (3.5-5.5)
--- NOTE | 2020-08-19 04:37 | NUR ---
SHIFT SUMMARY NO ACUTE CHANGES THIS SHIFT, NO C/O ANY KIND, DR VELÁZQUEZ UPDATED ON PM LABS, NEW ORDERS PLACED AND MEDS GIVEN, PT SHOWERED INDEP, SLEPT T/O THE NIGHT & SLEEPING AT THIS TIME, CALL LIGHT IN REACH, WILL CONT TO MONITOR UNTIL REPORT GIVEN TO DAY RN.
[2020-08-19 04:50] LABS: Hemoglobin 8.2 g/dL (11.5-16.0)
[2020-08-19 05:15] LABS: Albumin, Blood 2.4 g/dL (3.4-5.0); Anion Gap 5 mmol/L (6-16); Blood Urea Nitrogen 5 mg/dL (8-24); Bun/Creatinine Ratio 4.7 (12.0-20.0); CO2, Blood 29 mmol/L (21-32); Calcium, Blood 7.5 mg/dL (8.5-10.1); Chloride, Blood 104 mmol/L (98-108); Creatinine, Blood 1.07 mg/dL (0.40-1.00); Glomerular Filtration Rate 55 (60-); Glucose, Blood 176 mg/dL (70-99); Magnesium, Blood 1.7 mg/dL (1.6-2.4); Phosphorus, Blood 2.8 mg/dL (2.5-4.9); Potassium, Blood 3.5 mmol/L (3.5-5.5); Sodium, Blood 138 mmol/L (136-145)
--- NOTE | 2020-08-19 09:39 | NUR ---
HOLDING B.P. MEDS AND BUMEX TILL SEES PATIENT.
--- NOTE | 2020-08-19 09:49 | NUR ---
TALKED TO . ASKED IF HE WANTED PATIENT TO HAVE; SPIROLACTONE, BUMEX, COZAAR AND INDERAL WITH B.P. 101/58. YES TO GIVE.
--- NOTE | 2020-08-19 13:43 | NUR ---
Met pt in bee resting she reports to be doing much better encouraged pt. and offered prayer and blessing
--- NOTE | 2020-08-19 14:50 | NUR ---
ALERT. ORIENTED. INDEPENDENT IN ROOM. LABS LOOKING BETTER. UNLABORED RESPIRATIONS. HAS DENIED ANY;NAUSEA OR PAIN. POSSIBLE D'C TOMORROW. WCTM.
[2020-08-19 17:47] LABS: BASOPHILS ABSOLUTE AUTO 0.07 K/mm3 (0.00-0.23); BASOPHILS PERCENT AUTO 1 % (0-2); EOSINOPHILS ABSOLUTE AUTO 0.21 K/mm3 (0.00-0.68); EOSINOPHILS PERCENT AUTO 2 % (0-6); Hematocrit 27.9 % (33.0-51.0); Hemoglobin 9.1 g/dL (11.5-16.0); IMMATURE GRAN ABSOLUTE AUTO 0.02 K/mm3 (0.00-0.10); IMMATURE GRAN PERCENT AUTO 0 % (0-1); LYMPHOCYTES ABSOLUTE AUTO 1.89 K/mm3 (0.84-5.20); LYMPHOCYTES PERCENT AUTO 21 % (21-46); MONOCYTES ABSOLUTE AUTO 0.93 K/mm3 (0.16-1.47); MONOCYTES PERCENT AUTO 10 % (4-13); Mean Corpuscular HGB 26.2 pg (26.0-34.0); Mean Corpuscular HGB Conc 32.6 g/dL (31.5-36.5); Mean Corpuscular Volume 80 fL (80-100); Mean Platelet Volume 12.1 fL (9.1-12.4); NEUTROPHILS ABSOLUTE AUTO 5.89 K/mm3 (1.96-9.15); NEUTROPHILS PERCENT AUTO 65 % (41-73); Platelet Count 161 K/mm3 (150-400); RDW Coefficient Variation 20.5 % (11.7-14.2); RDW Standard Deviation 60.6 fL (35.1-46.3); Red Blood Cell Count 3.47 M/mm3 (3.80-5.20); White Blood Cell Count 9.01 K/mm3 (4.00-11.30)
[2020-08-20 04:46] LABS: Hematocrit 25.7 % (33.0-51.0); Hemoglobin 8.4 g/dL (11.5-16.0)
[2020-08-20 05:04] LABS: Albumin, Blood 2.3 g/dL (3.4-5.0); Anion Gap 4 mmol/L (6-16); Blood Urea Nitrogen 6 mg/dL (8-24); Bun/Creatinine Ratio 5.6 (12.0-20.0); CO2, Blood 31 mmol/L (21-32); Calcium, Blood 7.7 mg/dL (8.5-10.1); Chloride, Blood 102 mmol/L (98-108); Creatinine, Blood 1.08 mg/dL (0.40-1.00); Glomerular Filtration Rate 55 (60-); Glucose, Blood 155 mg/dL (70-99); Magnesium, Blood 1.4 mg/dL (1.6-2.4); Phosphorus, Blood 2.8 mg/dL (2.5-4.9); Potassium, Blood 3.4 mmol/L (3.5-5.5); Sodium, Blood 137 mmol/L (136-145)
--- NOTE | 2020-08-20 06:27 | NUR ---
SHIFT SUMMARY PATIENT ALERT AND ORIENTED. HAD NO COMPLAINTS OF PAIN OR SHORTNESS OF BREATH. PATIENT SLEPT WELL AND HAD MINIMAL NEEDS. NO ACUTE ISSUES NOTED OVERNIGHT. IV PATENT AND INFUSING. BED IN LOWEST POSITION WITH WHEELS LOCKED. CALL LIGHT WITHIN REACH. REPORT GIVEN TO ONCOMING RN.
--- NOTE | 2020-08-20 06:49 | NUR ---
DR VELÁZQUEZ ASSESSED PATIENT AND ORDERED FOR HER BUMEX TO BE INCREASED TO 3 MG IV BID.
--- NOTE | 2020-08-20 07:10 | NUR ---
talked to about iv potassium for lab of 3.4. patient crying due to pain. has had multiple iv's this admit and currently has 24 ga. ok to stop iv potassium per md. patient will get p.o. potassium tid.
--- NOTE | 2020-08-20 07:28 | NUR ---
TALKED TO ABOUT PATIENT GETS; ALDACTONE, BUMEX, COZAAR, AND INDERAL AND HAS B.P. OF 96/54. MD WANTS PATIENT TO HAVE MEDS.
[2020-08-20] MEDS ORDERED: Bumetanide2 MG PO (14:27)
[2020-08-20] MEDS ORDERED: MAGNESIUM OXID400 M1 PO (14:27)
[2020-08-20] MEDS ORDERED: SPIR50 PO (14:27)
--- NOTE | 2020-08-20 15:40 | NUR ---
REVIEW D'C WITH PATIENT AND DAUGHTER. AWARE TO [facility] RO[facility] ATTENDANT MEDS AT [facility]. AWARE APPTS W/PCP AND DR. VELÁZQUEZ ON WEDNESDAY. ADVISED TO CALL AHEAD OF TIME TO SEE WHAT LABS THEY MAY WANT AND CAN GET THEM PRIOR TO APPT. EDUCATION PRINTED IN [place]. ANSWER ALL QUESTIONS. VERBALIZES UNDERSTANDING. BRUISING KITTY ARMS DUE TO MULTIPLE IV STARTS. IN W/C TO POV.
--- NOTE | 2020-08-20 16:19 | NUR ---
Update 08/20/20: Pt. discharged home today. Strong family support and no discharge concerns. She is scheduled for a F/U appointment on 08/[address] Osborne. Update 08/19/2020: Pt. not quite ready for discharge. Likely within 24-48 hours. All discharge planning completed with pt. on 08/16/20.
== END 2020-08-20 15:10 | disposition home or self-care (01) | DRG 389 ==
LOC: ER 00:57 → MEDS 03:09
PROVIDERS: Emergency Medicine; Family Medicine; Hospitalist; Internal Medicine Nephrology; Student in an Organized Health Care Education/Training Program; ADMIT Internal Medicine
PROC: 0W9G3ZZ Drainage of Peritoneal Cavity, Percutaneous Approach (ICD-10-PCS; principal; 2020-08-14)
DX: K91.31 Postprocedural partial intestinal obstruction (principal); B18.1 Chronic viral hepatitis B without delta-agent; R18.8 Other ascites; N17.9 Acute kidney failure, unspecified; K92.1 Melena; D62 Acute posthemorrhagic anemia; K74.69 Other cirrhosis of liver; E87.6 Hypokalemia; E83.42 Hypomagnesemia; E11.22 Type 2 diabetes mellitus with diabetic chronic kidney disease; N18.9 Chronic kidney disease, unspecified; D63.1 Anemia in chronic kidney disease; I48.0 Paroxysmal atrial fibrillation; E88.09 Other disorders of plasma-protein metabolism, not elsewhere classified; E83.39 Other disorders of phosphorus metabolism; E03.9 Hypothyroidism, unspecified; I12.9 Hypertensive chronic kidney disease with stage 1 through stage 4 chronic kidney disease, or unspecified chronic kidney disease; Z90.49 Acquired absence of other specified parts of digestive tract; Z98.51 Tubal ligation status; Z85.3 Personal history of malignant neoplasm of breast; Z79.01 Long term (current) use of anticoagulants; Z88.8 Allergy status to other drugs, medicaments and biological substances; Z88.6 Allergy status to analgesic agent; Z79.899 Other long term (current) drug therapy; Z79.84 Long term (current) use of oral hypoglycemic drugs
CPT/HCPCS: 36415; 49083; 74177; 80048; 80053; 80069; 81050; 82042; 82105; 82140; 82150; 82248; 82274; 82378; 82945; 82947; 83615; 83690; 83735; 84100; 84132; 84156; 85014; 85018; 85025; 85610; 87070; 87086; 87205; 88108; 88305; 89051; 93306; 96365-59; 96375; 99285-25; A9270; C9113; J1940; J2405; J3010; J3475; J3480; J7030; J7050; J7060; P9041; P9046; Q9967

== ENCOUNTER → 2020-08-29 | Outpatient (CLI) | payer OTHER ==
[~2020-08-29] MED LIST changes: +ALDACTONE25 MG PO; +ALOGLIPTIN25 M1 PO; +B-12 COMPL1000 MCG/2 IM; +Bumetanide2 MG PO; +GLUCHON PO; +LACT10SY PO; +MAGNESIUM OXID400 M1 PO; +SPIR50 PO; +TUMS500 MG PO
[2020-08-29 12:43] LABS: Albumin, Blood 2.7 g/dL (3.4-5.0); Albumin/Globulin Ratio 0.5 (0.8-1.8); Bilirubin, Total 1.9 mg/dL (0.1-1.0); Bun/Creatinine Ratio 11.7 (12.0-20.0); Creatinine, Blood 2.13 mg/dL (0.40-1.00); Globulin, Blood 5.4 g/dL (2.2-4.0); Potassium, Blood 3.4 mmol/L (3.5-5.5); Total Protein, Blood 8.1 g/dL (6.4-8.2)
== END | disposition home or self-care (01) ==
LOC: LAB 12:25 → LAB SHORT 12:25
PROVIDERS: Family Medicine
DX: I95.9 Hypotension, unspecified (principal)
CPT/HCPCS: 80053

== ENCOUNTER 2020-08-31 09:15 | Inpatient (IN) | payer OTHER ==
[~2020-08-31] VITALS: Ht 165.1 cm; Wt 79.0 kg
[~2020-08-31 09:15] MED LIST changes: -ALDACTONE25 MG PO; -ALOGLIPTIN25 M1 PO; -B-12 COMPL1000 MCG/2 IM; -GLUCHON PO; -LACT10SY PO; -TUMS500 MG PO
[2020-08-31 09:51] LABS: BASOPHILS ABSOLUTE AUTO 0.07 K/mm3 (0.00-0.23); BASOPHILS PERCENT AUTO 1 % (0-2); EOSINOPHILS ABSOLUTE AUTO 0.17 K/mm3 (0.00-0.68); EOSINOPHILS PERCENT AUTO 2 % (0-6); Hematocrit 29.4 % (33.0-51.0); Hemoglobin 9.5 g/dL (11.5-16.0); IMMATURE GRAN ABSOLUTE AUTO 0.04 K/mm3 (0.00-0.10); IMMATURE GRAN PERCENT AUTO 1 % (0-1); LYMPHOCYTES ABSOLUTE AUTO 1.78 K/mm3 (0.84-5.20); LYMPHOCYTES PERCENT AUTO 21 % (21-46); MONOCYTES ABSOLUTE AUTO 0.77 K/mm3 (0.16-1.47); MONOCYTES PERCENT AUTO 9 % (4-13); Mean Corpuscular HGB 26.3 pg (26.0-34.0); Mean Corpuscular HGB Conc 32.3 g/dL (31.5-36.5); Mean Corpuscular Volume 81 fL (80-100); Mean Platelet Volume 11.9 fL (9.1-12.4); NEUTROPHILS ABSOLUTE AUTO 5.71 K/mm3 (1.96-9.15); NEUTROPHILS PERCENT AUTO 67 % (41-73); Platelet Count 156 K/mm3 (150-400); RDW Coefficient Variation 18.2 % (11.7-14.2); RDW Standard Deviation 54.5 fL (35.1-46.3); Red Blood Cell Count 3.61 M/mm3 (3.80-5.20); White Blood Cell Count 8.54 K/mm3 (4.00-11.30)
[2020-08-31 10:06] LABS: International Normalized Ratio 1.31; Prothrombin Time Results 13.9 Sec (9.7-11.5)
[2020-08-31 10:15] LABS: Alanine Aminotransfer (ALT/SGP 19 U/L (12-78); Albumin, Blood 2.5 g/dL (3.4-5.0); Albumin/Globulin Ratio 0.5 (0.8-1.8); Alk Phos 93 U/L (50-136); Anion Gap 7 mmol/L (6-16); Aspartate Aminotrans (AST/SGOT 28 U/L (12-37); Bilirubin, Total 1.5 mg/dL (0.1-1.0); Blood Urea Nitrogen 24 mg/dL (8-24); Bun/Creatinine Ratio 15.4 (12.0-20.0); CO2, Blood 32 mmol/L (21-32); Calcium, Blood 8.7 mg/dL (8.5-10.1); Chloride, Blood 94 mmol/L (98-108); Creatinine, Blood 1.56 mg/dL (0.40-1.00); Ethanol (Alcohol), Blood, Med <3 mg/dL; Globulin, Blood 4.9 g/dL (2.2-4.0); Glomerular Filtration Rate 36 (60-); Glucose, Blood 166 mg/dL (70-99); Potassium, Blood 2.8 mmol/L (3.5-5.5); Sodium, Blood 133 mmol/L (136-145); Total Protein, Blood 7.4 g/dL (6.4-8.2)
[2020-08-31 10:30] LABS: Source, Urine Catheter
[2020-08-31 10:35] LABS: Bilirubin, Urine Neg (Neg); Blood, Urine 1+ (Neg); Color, Urine Yellow (P-Yellow); Glucose Qualitative, Urine Neg (Neg); Ketones, Urine Neg (Neg); Leukocyte Esterase, Urine Neg (Neg); Nitrite, Urine Neg (Neg); Protein, Urine 1+ (Neg); Urobilinogen, Urine 1+ (Normal)
[2020-08-31 10:57] LABS: U Amphetamine Screen Not Detected; U Barbituate Screen Not Detected; U Benzodiazapine Screen Not Detected; U Buprenorphine Screen Not Detected; U Cannabinoids Screen Not Detected; U Cocaine Screen Not Detected; U Methadone Screen Not Detected; U Methamphetamine Screen Not Detected; U Opiates Screen Not Detected; U Oxycodone Screen Not Detected; U Phencyclidine Screen Not Detected; U Propoxyphene Screen Not Detected
[2020-08-31 11:07] LABS: Bacteria Few /hpf; Squamous Epithelial Cells Few /hpf (Few); White Blood Cells, Urine Not Seen /hpf (0-5)
[2020-08-31 11:08] LABS: Amorphous Light (0-Heavy); Appearance, Urine Hazy (Clear); Hyaline Casts 0-2 /lpf (0-2); Mucus Light (0-Heavy)
[2020-08-31 11:15] LABS: Free Thyroxine 1.28 ng/dL (0.70-1.60)
[2020-08-31] MEDS ORDERED: AMLO5 PO (16:17)
[2020-08-31] MEDS ORDERED: METO25ER PO (16:17)
[2020-08-31] MEDS ORDERED: GLUCHON PO (16:18)
[2020-08-31] MEDS ORDERED: PIOG30 PO (16:19)
[2020-08-31] MEDS ORDERED: ALOGLIPTIN25 M1 PO (16:20)
[2020-08-31] MEDS ORDERED: GABA100 PO (16:20)
--- NOTE | 2020-08-31 18:29 | NUR ---
PATIENT IS A NEW ADMIT THIS SHIFT. HER DAUGHTER IS AT THE BEDSIDE. PATIENT IS CONFUSED. SHE IS MORE ALERT UP ON MEDICAL FLOOR THAN SHE WAS IN ER AND AT HOME. DR. VALE ASSESSED THE PATIENT AT THE BEDSIDE. THE DAUGHTER IS ASSISTING THE PATIENT WITH DINNER AT THIS TIME. SHE WAS ABLE TO SWALLOW PILLS WITH WATER. BEDREST. WILL CONTINUE TO MONITOR
--- NOTE | 2020-08-31 18:31 | NUR ---
BEDALARM IS IN PLACE. PATIENT HAS YELLOW SOCKS ON
--- NOTE | 2020-09-01 04:42 | NUR ---
SHIFT SUMMARY PT'S MENTATION IMPROVING. MORE ALERT THIS EVENING. PT WAS ABLE TO TELL ME WHO SHE WAS, WHO HER DAUGHTER WAS, WHERE SHE WAS AND WHY SHE WAS HERE BUT WAS UNABLE TO COME UP WITH THE DATE. PT DOES REMAIN VERY TIRED AND FATIGUED. SLEPT THROUGH MUCH OF THE NIGHT. PT FIRST LANGUAGE IS ESTONIAN AND DOES HAVE SOME DIFFICULTY WITH TIMES WITH LANGUAGE BARRIER. DAUGHTER IS PRESENT AT BEDSIDE AND IS ABLE TO INTERPRET WHEN PT IS STRUGGLING. PT WAS ABLE TO GET UP TO BSC WITH JUST 1 PERSON ASSIST. VAGINAL BLEEDING NOTED. URINE PINK IN COLOR FROM THIS BLEEDING. A SMALL AMOUNT OF BLOOD ON ATTENDS. VITAL SIGNS STABLE. NO COMPLAINTS OF PAIN. WILL CONTINUE TO MONITOR.
[2020-09-01 10:03] LABS: BASOPHILS PERCENT AUTO 1 % (0-2); EOSINOPHILS ABSOLUTE AUTO 0.17 K/mm3 (0.00-0.68); EOSINOPHILS PERCENT AUTO 2 % (0-6); Hematocrit 31.2 % (33.0-51.0); IMMATURE GRAN ABSOLUTE AUTO 0.07 K/mm3 (0.00-0.10); IMMATURE GRAN PERCENT AUTO 1 % (0-1); LYMPHOCYTES ABSOLUTE AUTO 2.03 K/mm3 (0.84-5.20); LYMPHOCYTES PERCENT AUTO 24 % (21-46); MONOCYTES ABSOLUTE AUTO 0.73 K/mm3 (0.16-1.47); MONOCYTES PERCENT AUTO 9 % (4-13); Mean Corpuscular HGB 26.8 pg (26.0-34.0); Mean Corpuscular HGB Conc 32.1 g/dL (31.5-36.5); Mean Corpuscular Volume 84 fL (80-100); NEUTROPHILS ABSOLUTE AUTO 5.48 K/mm3 (1.96-9.15); NEUTROPHILS PERCENT AUTO 64 % (41-73); Platelet Count 173 K/mm3 (150-400); RDW Coefficient Variation 18.6 % (11.7-14.2); RDW Standard Deviation 56.7 fL (35.1-46.3); Red Blood Cell Count 3.73 M/mm3 (3.80-5.20); White Blood Cell Count 8.58 K/mm3 (4.00-11.30)
[2020-09-01 10:40] LABS: Albumin, Blood 2.5 g/dL (3.4-5.0); Albumin/Globulin Ratio 0.5 (0.8-1.8); Bilirubin, Total 2.2 mg/dL (0.1-1.0); Bun/Creatinine Ratio 13.3 (12.0-20.0); Calcium, Blood 8.6 mg/dL (8.5-10.1); Creatinine, Blood 1.5 mg/dL (0.40-1.00); Globulin, Blood 5.1 g/dL (2.2-4.0); Potassium, Blood 3.6 mmol/L (3.5-5.5); Total Protein, Blood 7.6 g/dL (6.4-8.2)
--- NOTE | 2020-09-01 17:21 | NUR ---
SHIFT SUMMARY: NO ACUTE EVENTS TO REPORT THIS SHIFT. PT A&O; CALM AND COOPERATIVE WITH CARE; OCC CONFUSION NOTED. NO C/O PAIN OR NAUSEA THIS SHIFT. TELE IN PLACE; PT CONVERTED TO A-FIB; AWARE. GENTLE REHYDRATION CONTINUING. PHYSICAL THERAPY & NUTRITIONAL CONSULT ORDERED THIS SHIFT. WCTM.
--- NOTE | 2020-09-02 02:43 | NUR ---
NOTIFIED BY [employer] THAT PT CONVERTED INTO AFIB IN THE 120'S-140'S. PRIOR TO THIS PT WAS SR IN THE 70'S. NOTIFIED DR. GUILLORY WITH NEW ORDER TO GIVE 5 MG OF IV LOPRESSOR NOW AND THEN AN ADDITIONAL DOSE IN 30 MINUTES IF PT'S RATE WAS NOT IMPROVING. FIRST DOSE OF IV LOPRESSOR GIVEN.
--- NOTE | 2020-09-02 03:11 | NUR ---
PT CONVERTED BACK INTO SR W/ PAC'S IN THE S.
[2020-09-02 05:07] LABS: BASOPHILS ABSOLUTE AUTO 0.06 K/mm3 (0.00-0.23); BASOPHILS PERCENT AUTO 1 % (0-2); EOSINOPHILS ABSOLUTE AUTO 0.21 K/mm3 (0.00-0.68); EOSINOPHILS PERCENT AUTO 4 % (0-6); Hematocrit 26.1 % (33.0-51.0); Hemoglobin 8.4 g/dL (11.5-16.0); IMMATURE GRAN ABSOLUTE AUTO 0.03 K/mm3 (0.00-0.10); IMMATURE GRAN PERCENT AUTO 1 % (0-1); LYMPHOCYTES ABSOLUTE AUTO 1.35 K/mm3 (0.84-5.20); LYMPHOCYTES PERCENT AUTO 23 % (21-46); MONOCYTES ABSOLUTE AUTO 0.66 K/mm3 (0.16-1.47); MONOCYTES PERCENT AUTO 11 % (4-13); Mean Corpuscular HGB 26.7 pg (26.0-34.0); Mean Corpuscular HGB Conc 32.2 g/dL (31.5-36.5); Mean Corpuscular Volume 83 fL (80-100); Mean Platelet Volume 11.9 fL (9.1-12.4); NEUTROPHILS ABSOLUTE AUTO 3.54 K/mm3 (1.96-9.15); NEUTROPHILS PERCENT AUTO 61 % (41-73); Platelet Count 119 K/mm3 (150-400); RDW Coefficient Variation 18.6 % (11.7-14.2); Red Blood Cell Count 3.15 M/mm3 (3.80-5.20); White Blood Cell Count 5.85 K/mm3 (4.00-11.30)
[2020-09-02 05:27] LABS: Albumin/Globulin Ratio 0.5 (0.8-1.8); Bilirubin, Total 1.8 mg/dL (0.1-1.0); Bun/Creatinine Ratio 10.8 (12.0-20.0); Calcium, Blood 8.2 mg/dL (8.5-10.1); Creatinine, Blood 1.39 mg/dL (0.40-1.00); Globulin, Blood 4.3 g/dL (2.2-4.0); Magnesium, Blood 1.7 mg/dL (1.6-2.4); Potassium, Blood 3.8 mmol/L (3.5-5.5); Total Protein, Blood 6.3 g/dL (6.4-8.2)
--- NOTE | 2020-09-02 05:56 | NUR ---
SHIFT SUMMARY PT HAD A DIFFICULT TIME SLEEPING THIS EVENING. NOT FALLING ASLEEP UNTIL LATE IN THE EVENING. NO COMPLAINTS OF PAIN. PT STATES THAT SHE OVERALL FEELS BETTER. STILL SOME WEAKNESS. UP TO BSC WITH ONE PERSON MINIMAL ASSIST. PT CONVERTED INTO AFIB X 2 THIS EVENING. MEDICATED THE FIRST TIME WITH IV METOPROLOL. SECOND TIME PT CONVERTED QUICKLY BACK ON HER OWN. NEW ORDERS HELD FOR TIME BEING. SMALL AMOUNT OF VAGINAL BLEEDING ONCE THIS EVENING. PT RESTING IN BED. CALL LIGHT IN REACH.
[2020-09-02] MEDS ORDERED: ALDACTONE25 MG PO (15:03)
--- NOTE | 2020-09-02 16:14 | NUR ---
PATIENT DISCHARGE: PATIENT DISCHARGED TO HOME / XFR TO HOME HEALTH THIS SHIFT. MEDICATION RECONCILIATION COMPLETED; MED LIST FAXED TO [facility]. DISCHARGE EDUCATION COMPLETED WITH PATIENT AND FAMILY. PATIENT TRANSPORTED TO EXIT BY [facility] STAFF WITH WHEELCHAIR AT 1612. PATIENT DEPARTED [facility] VIA PRIVATE AUTO.
--- NOTE | 2020-09-02 18:51 | NUR ---
Spiritual care note: Provided supportive visit to Eleanor this morning. Prayer and spiritual encouragement appreciated. She is , but her does not live here ([place]?) Her two dtrs are local and appear to be quite involved in their mother's care. I was tasked to speak to Eleanor about advanced care planning. She does not see a need for documentation as her dtrs will follow her wishes. She did, however,take an Advanced Directive packet. She was being d/c this afternoon.
== END 2020-09-02 16:11 | disposition home health service (06) | DRG 640 ==
LOC: ER 09:15 → ERHOLD 13:18 → MEDS 16:04 → ENPENDDIS 09-02 14:41 → MEDS 09-02 16:11
PROVIDERS: Emergency Medicine; ADMIT Family Medicine
DX: E87.6 Hypokalemia (principal); G93.41 Metabolic encephalopathy; R18.8 Other ascites; B18.1 Chronic viral hepatitis B without delta-agent; K50.90 Crohn's disease, unspecified, without complications; N17.9 Acute kidney failure, unspecified; E44.0 Moderate protein-calorie malnutrition; K74.60 Unspecified cirrhosis of liver; I48.0 Paroxysmal atrial fibrillation; F32.9 Major depressive disorder, single episode, unspecified; N18.30 Chronic kidney disease, stage 3 unspecified; E11.22 Type 2 diabetes mellitus with diabetic chronic kidney disease; K21.9 Gastro-esophageal reflux disease without esophagitis; D63.1 Anemia in chronic kidney disease; E03.9 Hypothyroidism, unspecified; Z68.33 Body mass index [BMI] 33.0-33.9, adult; Z85.3 Personal history of malignant neoplasm of breast; Z98.51 Tubal ligation status; Z90.49 Acquired absence of other specified parts of digestive tract; Z98.890 Other specified postprocedural states; Z87.891 Personal history of nicotine dependence; Z88.1 Allergy status to other antibiotic agents; Z79.01 Long term (current) use of anticoagulants; Z88.8 Allergy status to other drugs, medicaments and biological substances; Z79.899 Other long term (current) drug therapy
CPT/HCPCS: 36415; 51701; 70450; 76830; 76856; 80053; 81001; 82140; 82947; 83735; 83880; 84439; 84443; 85025; 85610; 85730; 93005; 93010; 96365-59; 97116; 97161; 97530; 99285-25; A9270; C9113; G0480; J1160; J3480; J7030; J7050; J7120

== ENCOUNTER 2020-09-15 20:09 | Inpatient (IN) | payer OTHER ==
[~2020-09-15] VITALS: Ht 165.1 cm; Wt 80.0 kg
[~2020-09-15 20:09] MED LIST changes: +ALDACTONE25 MG PO; +ALOGLIPTIN25 M1 PO; +GLUCHON PO
[2020-09-15] MEDS ORDERED: SPIR50 PO (20:31)
[2020-09-15] MEDS ORDERED: B-12 COMPL1000 MCG/2 IM (20:32)
[2020-09-15] MEDS ORDERED: TUMS500 MG PO (20:33)
[2020-09-15 20:45] LABS: BASOPHILS ABSOLUTE AUTO 0.06 K/mm3 (0.00-0.23); BASOPHILS PERCENT AUTO 1 % (0-2); EOSINOPHILS ABSOLUTE AUTO 0.01 K/mm3 (0.00-0.68); EOSINOPHILS PERCENT AUTO 0 % (0-6); Hematocrit 30.6 % (33.0-51.0); IMMATURE GRAN ABSOLUTE AUTO 0.03 K/mm3 (0.00-0.10); IMMATURE GRAN PERCENT AUTO 0 % (0-1); LYMPHOCYTES ABSOLUTE AUTO 1.63 K/mm3 (0.84-5.20); LYMPHOCYTES PERCENT AUTO 17 % (21-46); MONOCYTES ABSOLUTE AUTO 0.86 K/mm3 (0.16-1.47); MONOCYTES PERCENT AUTO 9 % (4-13); Mean Corpuscular HGB 26.7 pg (26.0-34.0); Mean Corpuscular HGB Conc 32.7 g/dL (31.5-36.5); Mean Corpuscular Volume 82 fL (80-100); Mean Platelet Volume 11.8 fL (9.1-12.4); NEUTROPHILS ABSOLUTE AUTO 6.85 K/mm3 (1.96-9.15); NEUTROPHILS PERCENT AUTO 73 % (41-73); Platelet Count 155 K/mm3 (150-400); RDW Coefficient Variation 17.5 % (11.7-14.2); RDW Standard Deviation 53.1 fL (35.1-46.3); Red Blood Cell Count 3.74 M/mm3 (3.80-5.20); White Blood Cell Count 9.44 K/mm3 (4.00-11.30)
[2020-09-15 21:04] LABS: Albumin, Blood 2.3 g/dL (3.4-5.0); Albumin/Globulin Ratio 0.4 (0.8-1.8); Bilirubin, Total 1.7 mg/dL (0.1-1.0); Bun/Creatinine Ratio 14.6 (12.0-20.0); Calcium, Blood 8.9 mg/dL (8.5-10.1); Creatinine, Blood 1.71 mg/dL (0.40-1.00); Globulin, Blood 5.4 g/dL (2.2-4.0); Potassium, Blood 3.2 mmol/L (3.5-5.5); Total Protein, Blood 7.7 g/dL (6.4-8.2)
[2020-09-15 21:40] LABS: Source, Urine Catheter
[2020-09-15 21:44] LABS: Appearance, Urine Clear (Clear); Blood, Urine 5+ (Neg); Color, Urine Amber (P-Yellow); Glucose Qualitative, Urine 4+ (Neg); Ketones, Urine Neg (Neg); Leukocyte Esterase, Urine 1+ (Neg); Nitrite, Urine Neg (Neg); Protein, Urine 2+ (Neg); Urobilinogen, Urine 1+ (Normal)
[2020-09-15 21:49] LABS: Bilirubin, Urine 1+ (Neg)
[2020-09-15 21:50] LABS: Bacteria Many /hpf; Squamous Epithelial Cells Mod /hpf (Few)
--- NOTE | 2020-09-16 04:35 | NUR ---
SHIFT SUMMARY PT NEW ED ADMIT THIS EVENING. PT IS A/O X 4. MENTATION APPEARS CLEAR. PT ANSWERS QUESTIONS APPRORPRIATLY. PT DOES REPORT FEELING QUITE FATIGUED. ASIDE FROM BEING WOKEN BY STAFF PT HAS SLEPT SINCE ADMISSION. WAS ABLE TO AMBULATE TO THE BATHROOM WITH JUST A SBA. PT IS MOSTLY [place] SPEAKING. DAUGHTER AT BEDSIDE HELPS WITH TRANSLATION. PT DENIES ANY NAUSEA OR PAIN. LACTULOSE GIVEN IN ED, PT HAS HAD ONE BOWEL MOVEMENT. VITAL SIGNS STABLE. WILL CONTINUE TO MONITOR.
[2020-09-16 05:34] LABS: BASOPHILS ABSOLUTE AUTO 0.06 K/mm3 (0.00-0.23); BASOPHILS PERCENT AUTO 1 % (0-2); EOSINOPHILS PERCENT AUTO 2 % (0-6); Hematocrit 27.1 % (33.0-51.0); Hemoglobin 8.7 g/dL (11.5-16.0); IMMATURE GRAN ABSOLUTE AUTO 0.02 K/mm3 (0.00-0.10); IMMATURE GRAN PERCENT AUTO 0 % (0-1); LYMPHOCYTES ABSOLUTE AUTO 1.95 K/mm3 (0.84-5.20); LYMPHOCYTES PERCENT AUTO 22 % (21-46); MONOCYTES ABSOLUTE AUTO 0.88 K/mm3 (0.16-1.47); MONOCYTES PERCENT AUTO 10 % (4-13); Mean Corpuscular HGB 26.8 pg (26.0-34.0); Mean Corpuscular HGB Conc 32.1 g/dL (31.5-36.5); Mean Corpuscular Volume 83 fL (80-100); Mean Platelet Volume 12.2 fL (9.1-12.4); NEUTROPHILS ABSOLUTE AUTO 5.81 K/mm3 (1.96-9.15); NEUTROPHILS PERCENT AUTO 65 % (41-73); Platelet Count 124 K/mm3 (150-400); RDW Coefficient Variation 17.5 % (11.7-14.2); RDW Standard Deviation 53.2 fL (35.1-46.3); Red Blood Cell Count 3.25 M/mm3 (3.80-5.20); White Blood Cell Count 8.92 K/mm3 (4.00-11.30)
[2020-09-16 06:11] LABS: Albumin, Blood 2.2 g/dL (3.4-5.0); Albumin/Globulin Ratio 0.5 (0.8-1.8); Bilirubin, Total 1.6 mg/dL (0.1-1.0); Bun/Creatinine Ratio 14.9 (12.0-20.0); Calcium, Blood 8.5 mg/dL (8.5-10.1); Creatinine, Blood 1.61 mg/dL (0.40-1.00); Globulin, Blood 4.8 g/dL (2.2-4.0); Potassium, Blood 2.7 mmol/L (3.5-5.5)
--- NOTE | 2020-09-16 17:44 | NUR ---
PT AOX4 AND COOPERATIVE OF CARE. PT HAS BEEN RESTING IN BED. PT HAS BEEN TREATED FOR NAUSEA X2 AND DR ALBRECHT NOTIFIED. PT FEELING VERY TIRED.FAMILY HAS BEEN AT BEDSIDE. CALL LIGHT IS WITHIN REACH WILL CONTINUE TO MONITOR.
--- NOTE | 2020-09-17 04:24 | NUR ---
SHIFT SUMMARY A/OX3, PLEASANT AND COOPERATIVE WITH CARE. DENIES PAIN OR SOB. TELE SR IN THE 70S. SLEPT T/O THE NIGHT. TOLERATING PO INTAKE. VSS, NO ACUTE CHANGES AT THIS TIME. BED IN LOWEST POSITION WITH CALL LIGHT IN REACH. WILL CONTINUE TO MONITOR AND REPORT TO ONCOMING RN.
[2020-09-17 04:44] LABS: BASOPHILS ABSOLUTE AUTO 0.05 K/mm3 (0.00-0.23); BASOPHILS PERCENT AUTO 1 % (0-2); EOSINOPHILS ABSOLUTE AUTO 0.16 K/mm3 (0.00-0.68); EOSINOPHILS PERCENT AUTO 2 % (0-6); Hematocrit 26.3 % (33.0-51.0); Hemoglobin 8.5 g/dL (11.5-16.0); IMMATURE GRAN ABSOLUTE AUTO 0.01 K/mm3 (0.00-0.10); IMMATURE GRAN PERCENT AUTO 0 % (0-1); LYMPHOCYTES ABSOLUTE AUTO 1.77 K/mm3 (0.84-5.20); LYMPHOCYTES PERCENT AUTO 22 % (21-46); MONOCYTES ABSOLUTE AUTO 0.73 K/mm3 (0.16-1.47); MONOCYTES PERCENT AUTO 9 % (4-13); Mean Corpuscular HGB 27.5 pg (26.0-34.0); Mean Corpuscular HGB Conc 32.3 g/dL (31.5-36.5); Mean Corpuscular Volume 85 fL (80-100); Mean Platelet Volume 12.1 fL (9.1-12.4); NEUTROPHILS ABSOLUTE AUTO 5.24 K/mm3 (1.96-9.15); NEUTROPHILS PERCENT AUTO 66 % (41-73); Platelet Count 117 K/mm3 (150-400); RDW Coefficient Variation 17.8 % (11.7-14.2); RDW Standard Deviation 55.2 fL (35.1-46.3); Red Blood Cell Count 3.09 M/mm3 (3.80-5.20); White Blood Cell Count 7.96 K/mm3 (4.00-11.30)
[2020-09-17 05:03] LABS: Albumin, Blood 2.1 g/dL (3.4-5.0); Albumin/Globulin Ratio 0.5 (0.8-1.8); Bilirubin, Total 1.7 mg/dL (0.1-1.0); Bun/Creatinine Ratio 13.2 (12.0-20.0); Calcium, Blood 7.8 mg/dL (8.5-10.1); Creatinine, Blood 1.82 mg/dL (0.40-1.00); Globulin, Blood 4.4 g/dL (2.2-4.0); Potassium, Blood 3.8 mmol/L (3.5-5.5); Total Protein, Blood 6.5 g/dL (6.4-8.2)
--- NOTE | 2020-09-17 17:19 | NUR ---
SHIFT SUMMARY: NO ACUTE EVENTS. NO EVENTS ON TELEMETRY, SR 70-80'S. DENIES PAIN. A&O X 3, BUT GETS CONFUSED AT TIMES. C/O STOMACH UPSET THIS AFTERNOON, POSSROBERTA D/T PO POTASSIUM LIQUID; RECEIVED ORDER FOR TUMS WITH GOOD RELIEF. ONE LITER NS BOLUS GIVEN. TELEPHONE UPDATE GIVEN TO DAUGHTER, INCLUDING PLAN FOR LIKELY D/C TOMORROW. FAMILY WOULD LIKE RE-CHECK OF AMMONIA LEVEL PRIOR TO D/C.
--- NOTE | 2020-09-17 17:40 | NUR ---
ADMIT: 09/15/20 DISCHARGE: DX: Lethargy, weakness., hepatic encephalopathy CC: [email or web address] JACKIE CALL: RESIDENCE: Home CAREGIVER: Sourav Reynolds, Spouse / Partner, Eli Reynolds, Child, DX: Afib, hypothyroidism, cirrhosis, crohn's disease, HTN. GERD, see list DME: DM supplies CCM: none HOME HEALTH: none SUMMARY: 09/17/20- per chart review with Dr. Martin, pt is going to need to have some more improvement in labs prior to d/c from the hospital. He could potentially see her d/c home on Wednesday. -[email or web address]
--- NOTE | 2020-09-18 04:35 | NUR ---
SHIFT SUMMARY A/OX4, PLEASANT AND COOPERATIVE WITH CARE. DENIES PAIN OR SOB. UP TO BATHROOM WITH 1 ASSIST. VSS, NO ACUTE CHANGES AT THIS TIME. BED IN LOWEST POSITION WITH CALL LIGHT IN REACH. WILL CONTINUE TO MONITOR AND REPORT TO ONCOMING RN.
[2020-09-18 09:41] LABS: Bun/Creatinine Ratio 12.3 (12.0-20.0); Calcium, Blood 8.1 mg/dL (8.5-10.1); Creatinine, Blood 1.46 mg/dL (0.40-1.00); Potassium, Blood 3.5 mmol/L (3.5-5.5)
[2020-09-18] MEDS ORDERED: LACT10SY PO (13:43)
--- NOTE | 2020-09-18 14:24 | NUR ---
PATIENT DISCHARGED TO HOME WITH SPOUSE. IV SALINE LOCK REMOVED WITHOUT INCIDENT. PT VERBALIZED UNDERSTANDING OF D/C INSTRUCTIONS. HAS F/U APPOINTMENT WITH [facility] TOMORROW. DRESSED INDEPENDENTLY. OFF UNIT VIA W/C AT 1416.
--- NOTE | 2020-09-18 15:56 | NUR ---
Update 09/18/2020: Per Dr. Martin, pt. appropriate for discharge. Discussed discharge plan with pt. She has a solid support system at home with family. She had previously declined HH services. Note sent to PCP regarding HH so that the can determine if further consideration and/or discussion needed. Pt. is scheduled for a visit with PCP Dr. Osborne tomorrow 09/19/20 at 2:40 pm. She would like to keep this appointment. I will add hospital F/U notes and ensure that Dr. Osborne has a copy of the discharge info prior to visit.
== END 2020-09-18 14:17 | disposition home or self-care (01) | DRG 442 ==
LOC: ER 20:09 → MEDS 23:30
PROVIDERS: Internal Medicine; Physician Assistant; ADMIT Internal Medicine
DX: K72.90 Hepatic failure, unspecified without coma (principal); N39.0 Urinary tract infection, site not specified; N17.9 Acute kidney failure, unspecified; E87.6 Hypokalemia; E11.65 Type 2 diabetes mellitus with hyperglycemia; M79.7 Fibromyalgia; E11.22 Type 2 diabetes mellitus with diabetic chronic kidney disease; E03.9 Hypothyroidism, unspecified; K74.69 Other cirrhosis of liver; N18.30 Chronic kidney disease, stage 3 unspecified; I12.9 Hypertensive chronic kidney disease with stage 1 through stage 4 chronic kidney disease, or unspecified chronic kidney disease; F32.9 Major depressive disorder, single episode, unspecified; Z88.6 Allergy status to analgesic agent; Z88.8 Allergy status to other drugs, medicaments and biological substances; Z88.1 Allergy status to other antibiotic agents; Z79.899 Other long term (current) drug therapy; Z85.3 Personal history of malignant neoplasm of breast; Z90.49 Acquired absence of other specified parts of digestive tract; Z98.51 Tubal ligation status; Z98.890 Other specified postprocedural states; Z87.891 Personal history of nicotine dependence
CPT/HCPCS: 36415; 71045; 73620; 80048; 80053; 81001; 82140; 82550; 82947; 83690; 83735; 84484; 85025; 86850; 86900; 86901; 87086; 93005; 93010; 99285-25; A9270; J0780; J1650; J1815; J2405; J3480; J7030

== ENCOUNTER → 2020-10-21 | Outpatient (CLI) | payer OTHER ==
[~2020-10-21] MED LIST changes: +AZAT50 PO; +B-12 COMPL1000 MCG/2 IM; +EXTRA PAIN REL1 EAC2 PO; +LACT10SY PO; +Nexium40 MG PO; +ONGLYZA5 MG PO; +TUMS500 MG PO
[2020-10-21 14:30] LABS: BASOPHILS ABSOLUTE AUTO 0.05 K/mm3 (0.00-0.23); BASOPHILS PERCENT AUTO 1 % (0-2); EOSINOPHILS ABSOLUTE AUTO 0.09 K/mm3 (0.00-0.68); EOSINOPHILS PERCENT AUTO 1 % (0-6); Hematocrit 29.2 % (33.0-51.0); Hemoglobin 9.6 g/dL (11.5-16.0); IMMATURE GRAN ABSOLUTE AUTO 0.04 K/mm3 (0.00-0.10); IMMATURE GRAN PERCENT AUTO 0 % (0-1); LYMPHOCYTES ABSOLUTE AUTO 1.51 K/mm3 (0.84-5.20); LYMPHOCYTES PERCENT AUTO 16 % (21-46); MONOCYTES ABSOLUTE AUTO 0.84 K/mm3 (0.16-1.47); MONOCYTES PERCENT AUTO 9 % (4-13); Mean Corpuscular HGB 28.1 pg (26.0-34.0); Mean Corpuscular HGB Conc 32.9 g/dL (31.5-36.5); Mean Corpuscular Volume 85 fL (80-100); Mean Platelet Volume 11.7 fL (9.1-12.4); NEUTROPHILS ABSOLUTE AUTO 6.97 K/mm3 (1.96-9.15); NEUTROPHILS PERCENT AUTO 74 % (41-73); Platelet Count 172 K/mm3 (150-400); RDW Coefficient Variation 15.5 % (11.7-14.2); RDW Standard Deviation 47.9 fL (35.1-46.3); Red Blood Cell Count 3.42 M/mm3 (3.80-5.20)
[2020-10-21 14:47] LABS: Albumin, Blood 2.2 g/dL (3.4-5.0); Albumin/Globulin Ratio 0.4 (0.8-1.8); Bilirubin, Total 1.5 mg/dL (0.1-1.0); Calcium, Blood 7.9 mg/dL (8.5-10.1); Creatinine, Blood 1.91 mg/dL (0.40-1.00); Globulin, Blood 5.2 g/dL (2.2-4.0); Potassium, Blood 5.2 mmol/L (3.5-5.5); Total Protein, Blood 7.4 g/dL (6.4-8.2)
== END | disposition home or self-care (01) ==
LOC: LAB 14:25 → LAB SHORT 14:25
PROVIDERS: Physician Assistant
DX: R11.0 Nausea (principal)
CPT/HCPCS: 80053; 83690; 85025

== ENCOUNTER 2020-11-15 13:19 | Inpatient (IN) | payer OTHER ==
[~2020-11-15] VITALS: Ht 160 cm; Wt 68.0 kg
[~2020-11-15 13:19] MED LIST changes: -AZAT50 PO; -EXTRA PAIN REL1 EAC2 PO; -Nexium40 MG PO; -ONGLYZA5 MG PO
[2020-11-15 13:47] LABS: BASOPHILS ABSOLUTE AUTO 0.04 K/mm3 (0.00-0.23); BASOPHILS PERCENT AUTO 0 % (0-2); EOSINOPHILS ABSOLUTE AUTO 0.05 K/mm3 (0.00-0.68); EOSINOPHILS PERCENT AUTO 1 % (0-6); Hematocrit 26.5 % (33.0-51.0); Hemoglobin 9.1 g/dL (11.5-16.0); IMMATURE GRAN ABSOLUTE AUTO 0.02 K/mm3 (0.00-0.10); IMMATURE GRAN PERCENT AUTO 0 % (0-1); LYMPHOCYTES ABSOLUTE AUTO 1.15 K/mm3 (0.84-5.20); LYMPHOCYTES PERCENT AUTO 12 % (21-46); MONOCYTES ABSOLUTE AUTO 0.89 K/mm3 (0.16-1.47); MONOCYTES PERCENT AUTO 9 % (4-13); Mean Corpuscular HGB 28.8 pg (26.0-34.0); Mean Corpuscular HGB Conc 34.3 g/dL (31.5-36.5); Mean Corpuscular Volume 84 fL (80-100); Mean Platelet Volume 12.4 fL (9.1-12.4); NEUTROPHILS PERCENT AUTO 78 % (41-73); Platelet Count 196 K/mm3 (150-400); RDW Coefficient Variation 14.2 % (11.7-14.2); RDW Standard Deviation 43.8 fL (35.1-46.3); Red Blood Cell Count 3.16 M/mm3 (3.80-5.20); White Blood Cell Count 9.55 K/mm3 (4.00-11.30)
[2020-11-15 14:22] LABS: Source, Urine Clean Catch
[2020-11-15 14:27] LABS: Appearance, Urine Clear (Clear); Bilirubin, Urine Neg (Neg); Blood, Urine Neg (Neg); Color, Urine Yellow (P-Yellow); Glucose Qualitative, Urine Neg (Neg); Ketones, Urine Neg (Neg); Leukocyte Esterase, Urine Neg (Neg); Nitrite, Urine Neg (Neg); Protein, Urine Neg (Neg); Urobilinogen, Urine 1+ (Normal)
[2020-11-15 14:58] LABS: Albumin, Blood 1.9 g/dL (3.4-5.0); Albumin/Globulin Ratio 0.3 (0.8-1.8); Bilirubin, Total 1.6 mg/dL (0.1-1.0); Bun/Creatinine Ratio 14.1 (12.0-20.0); Calcium, Blood 7.4 mg/dL (8.5-10.1); Creatinine, Blood 1.99 mg/dL (0.40-1.00); Globulin, Blood 5.5 g/dL (2.2-4.0); Magnesium, Blood 1.9 mg/dL (1.6-2.4); Phosphorus, Blood 2.7 mg/dL (2.5-4.9); Total Protein, Blood 7.4 g/dL (6.4-8.2)
[2020-11-15 16:35] LABS: SARS-Cov-2 (COVID-19) PCR, MMC NEGATIVE (NEGATIVE)
--- NOTE | 2020-11-16 01:50 | NUR ---
PT ARRIVED TO MEDICAL FLOOR AT 2220, TRANSFERRED USING SLIDE SHEET FROM ER [facility] TO MEDICAL BED WITH ASSISTANCE FROM 3 STAFF. PT IS LETHARGIC, UNABLE TO ANSWER ASSESSMENT QUESTIONS. SHE WILL OPEN HER EYES TO VERBAL STIMULI. ASSISTED FROM BED TO BSC WITH HELP FROM 2 STAFF MEMBERS FOR A LARGE LOOSE BM. IV ACCESS TO RIGHT AC, WITH NS INFUSING AT 100 ML/HR. ROOM AIR. VSS. PT DOESN'T ANSWER QUESTIONS REGARDING PAIN OR MEDICAL HISTORY, SHE IS SLEEPING. ATTEMPTED TO PLACE RECTAL TUBE, PT WAS UNABLE TO TOLERATE PROCEDURE DUE TO EXTENSIVE HEMORRHOIDS. LACTULOSE ENEMA GIVEN, WITH RESULTS OF TWO MEDIUM-LARGE BM'S. PT'S BED IS IN LOWEST POSITION, WILL CONTINUE TO MONITOR.
[2020-11-16] MEDS ORDERED: EXTRA PAIN REL1 EAC2 PO (02:45)
[2020-11-16] MEDS ORDERED: AZAT50 PO (02:45)
[2020-11-16] MEDS ORDERED: ONGLYZA5 MG PO (02:46)
[2020-11-16] MEDS ORDERED: LOPE2C PO (02:47)
[2020-11-16] MEDS ORDERED: Nexium40 MG PO (02:47)
[2020-11-16] MEDS ORDERED: BUTALB-ACETAMI1 EAC5 PO (02:50)
--- NOTE | 2020-11-16 05:36 | NUR ---
SHIFT SUMMARY AFTER VOIDING TWO MED-LARGE LOOSE BMS FOLLOWING LACTULOSE, PT SLEPT THE REST OF THE SHIFT. BED IN LOWEST POSITION, NO ACUTE CHANGES. CALL LIGHT WITHIN REACH. WILL CONTINUE TO MONITOR.
[2020-11-16 06:30] LABS: BASOPHILS ABSOLUTE AUTO 0.07 K/mm3 (0.00-0.23); BASOPHILS PERCENT AUTO 1 % (0-2); EOSINOPHILS ABSOLUTE AUTO 0.06 K/mm3 (0.00-0.68); EOSINOPHILS PERCENT AUTO 1 % (0-6); Hematocrit 26.9 % (33.0-51.0); Hemoglobin 8.9 g/dL (11.5-16.0); IMMATURE GRAN ABSOLUTE AUTO 0.04 K/mm3 (0.00-0.10); IMMATURE GRAN PERCENT AUTO 0 % (0-1); LYMPHOCYTES PERCENT AUTO 14 % (21-46); MONOCYTES PERCENT AUTO 8 % (4-13); Mean Corpuscular HGB 28.2 pg (26.0-34.0); Mean Corpuscular HGB Conc 33.1 g/dL (31.5-36.5); Mean Corpuscular Volume 85 fL (80-100); Mean Platelet Volume 12.2 fL (9.1-12.4); NEUTROPHILS PERCENT AUTO 77 % (41-73); Platelet Count 152 K/mm3 (150-400); RDW Coefficient Variation 14.4 % (11.7-14.2); RDW Standard Deviation 44.3 fL (35.1-46.3); Red Blood Cell Count 3.16 M/mm3 (3.80-5.20); White Blood Cell Count 11.47 K/mm3 (4.00-11.30)
[2020-11-16 07:13] LABS: Magnesium, Blood 1.7 mg/dL (1.6-2.4)
[2020-11-16 07:17] LABS: Bun/Creatinine Ratio 14.3 (12.0-20.0); Calcium, Blood 7.2 mg/dL (8.5-10.1); Creatinine, Blood 1.82 mg/dL (0.40-1.00); Potassium, Blood 2.4 mmol/L (3.5-5.5)
--- NOTE | 2020-11-16 11:17 | NUR ---
RECEIVED ORDERS FOR KCL 40 MEQ IV X2.
[2020-11-16 14:26] LABS: Magnesium, Blood 1.7 mg/dL (1.6-2.4); Potassium, Blood 3.2 mmol/L (3.5-5.5)
--- NOTE | 2020-11-16 18:15 | NUR ---
SHIFT SUMMARY PATIENT'S MENTATION HAS IMPROVED THROUGOUT THIS SHIFT. PATIENT HAS BEEN CALLING APPROPRIATELY TO USE THE BATHROOM. THE PATIENT HAS BEEN SPEAKING TO FAMILY ON THE PHONE THROUGHOUT THE DAY. PATIENT IS PLEASANT AND COOPERATIVE WITH CARE. VITAL SIGNS STABLE.
--- NOTE | 2020-11-16 19:30 | NUR ---
ASSUMED CARE RECEIVED REPORT FROM JOSEMANUEL SON. PT RESTING, IN NAD. A&OX4, PLEASANT. NO ACUTE NEEDS ASSESSED AT THIS TIME. CALL LIGHT, POSSESSIONS IN REACH, ERIN.
--- NOTE | 2020-11-17 06:21 | NUR ---
SHIFT SUMMARY PT RESTING, IN NAD. NO ACUTE CONCERNS TO REPORT OVERNIGHT, REMAINS A&OX4 AND PLEASANT, COOPERATIVE. AMBULATING SELF TO BATHROOM WITH SBA; STEADY GAIT. APPEARED TO SLEEP FAIR OVERNIGHT. VS REVIEWED,WNL. NO ACUTE NEEDS ASSESSED AT THIS TIME. CALL LIGHT, POSSESSIONS IN REACH, BED IN LOW AND LOCKED POSITION. IVF INFUSING ORDERED. WILL REPORT OFF TO ONCOMING RN.
--- NOTE | 2020-11-17 18:29 | NUR ---
SHIFT SUMMARY PATIENT IS ALERT AND ORIENTED, AND COOPERATIVE WITH CARE. SALINE RUNNING AT 50MLS/HR IN THE LEFT FOREARM. VITAL SIGNS STABLE. ON RA, STAND BY ASSIST.
[2020-11-18 05:31] LABS: Bun/Creatinine Ratio 11.6 (12.0-20.0); Calcium, Blood 7.9 mg/dL (8.5-10.1); Creatinine, Blood 2.07 mg/dL (0.40-1.00); Magnesium, Blood 2.2 mg/dL (1.6-2.4); Potassium, Blood 2.9 mmol/L (3.5-5.5)
--- NOTE | 2020-11-18 07:45 | NUR ---
SHIFT SUMMARY PT SLEPT WELL FOR THE DURATION OF THE SHIFT. CALLED APPROPRIATELY TO USE THE BATHROOM, 2 MEDIUM LOOSE BM'S. VSS. CALL LIGHT IN REACH, BED IN LOWEST POSITION. NO ACUTE CHANGES.
[2020-11-18] MEDS ORDERED: POTA10T PO (16:31)
--- NOTE | 2020-11-18 19:05 | NUR ---
DISCHARGE SUMMARY: LATE ENTRY: 1735 PATIENT READY FOR DISCHARGE. PATIENT DENIED PAIN OR DISCOMFORT THROUGHOUT THE SHIFT. PATIENT INDEPENDENT IN THE ROOM. PATIENT REPORTED MULTIPLE BOWEL MOVEMENTS. PATIENT ALERT AND ORIENTED AND ANXIOUS ABOUT HER DISCHARGE. PATIENT HAS A MODERATE APPETITE. PATIENT STEADY ON HER FEET. PATIENT PRESCRIPTIONS SENT TO [facility] PER REQUEST. DISCHARGE INSTRUCTIONS AND EDUCATION PROVIDED TO THE PATIENT. ALL QUESTIONS AND CONCERNS ADDRESSED. PATIENT DISCHARGED IN WHEELCHAIR WITH [employer]. PATIENT STABLE AT TIME OF DISCHARGE.
== END 2020-11-18 17:35 | disposition home or self-care (01) | DRG 442 ==
LOC: ER 13:19 → ERHOLD 17:49 → MEDS 22:21
PROVIDERS: Physician Assistant; ADMIT Internal Medicine
DX: K72.90 Hepatic failure, unspecified without coma (principal); K50.90 Crohn's disease, unspecified, without complications; N18.4 Chronic kidney disease, stage 4 (severe); B19.10 Unspecified viral hepatitis B without hepatic coma; K74.60 Unspecified cirrhosis of liver; I48.91 Unspecified atrial fibrillation; K21.9 Gastro-esophageal reflux disease without esophagitis; E03.9 Hypothyroidism, unspecified; N18.30 Chronic kidney disease, stage 3 unspecified; E11.22 Type 2 diabetes mellitus with diabetic chronic kidney disease; F32.9 Major depressive disorder, single episode, unspecified; E87.6 Hypokalemia; I12.9 Hypertensive chronic kidney disease with stage 1 through stage 4 chronic kidney disease, or unspecified chronic kidney disease; Z90.49 Acquired absence of other specified parts of digestive tract; Z98.51 Tubal ligation status; Z88.6 Allergy status to analgesic agent; Z88.8 Allergy status to other drugs, medicaments and biological substances; Z79.899 Other long term (current) drug therapy
CPT/HCPCS: 36415; 74176; 80048; 80053; 81003; 82140; 83690; 83735; 84100; 84132; 85025; 93005; 93010; 96374; 99285-25; A9270; J1650; J2405; J3475; J3480; J7030; J7500; U0004

== ENCOUNTER 2020-11-29 14:00 | Inpatient (IN) | payer OTHER ==
[~2020-11-29] VITALS: Ht 167.6 cm; Wt 81.2 kg
[~2020-11-29 14:00] MED LIST changes: +AZAT50 PO; +EXTRA PAIN REL1 EAC2 PO; +Nexium40 MG PO; +ONGLYZA5 MG PO
[2020-11-29 14:35] LABS: BASOPHILS ABSOLUTE AUTO 0.03 K/mm3 (0.00-0.23); BASOPHILS PERCENT AUTO 0 % (0-2); EOSINOPHILS ABSOLUTE AUTO 0.06 K/mm3 (0.00-0.68); EOSINOPHILS PERCENT AUTO 1 % (0-6); Hematocrit 26.4 % (33.0-51.0); IMMATURE GRAN ABSOLUTE AUTO 0.03 K/mm3 (0.00-0.10); IMMATURE GRAN PERCENT AUTO 0 % (0-1); LYMPHOCYTES ABSOLUTE AUTO 1.25 K/mm3 (0.84-5.20); LYMPHOCYTES PERCENT AUTO 17 % (21-46); MONOCYTES ABSOLUTE AUTO 0.52 K/mm3 (0.16-1.47); MONOCYTES PERCENT AUTO 7 % (4-13); Mean Corpuscular HGB 28.4 pg (26.0-34.0); Mean Corpuscular HGB Conc 34.1 g/dL (31.5-36.5); Mean Corpuscular Volume 83 fL (80-100); Mean Platelet Volume 11.7 fL (9.1-12.4); NEUTROPHILS ABSOLUTE AUTO 5.28 K/mm3 (1.96-9.15); NEUTROPHILS PERCENT AUTO 74 % (41-73); Platelet Count 133 K/mm3 (150-400); RDW Coefficient Variation 14.4 % (11.7-14.2); Red Blood Cell Count 3.17 M/mm3 (3.80-5.20); White Blood Cell Count 7.17 K/mm3 (4.00-11.30)
[2020-11-29 14:35] LABS: Calcium, Ionized (POC) 1.04 mmol/L (1.10-1.46); Chloride (POC) 85 mmol/L (98-108); Creatinine (POC) 2.6 mg/dL (0.6-1.0); Glucose (ISTAT POC) 208 mg/dL (70-99); Hemoglobin (POC) 8.5 g/dL (12.0-16.0); Sodium (POC) 130 mmol/L (135-148); Total CO2 (POC) 33 mmol/L (21-32)
[2020-11-29 14:54] LABS: Bilirubin, Direct 0.7 mg/dL (0.0-0.3)
[2020-11-29 15:03] LABS: International Normalized Ratio 2.15; Prothrombin Time Results 22.2 Sec (9.7-11.5)
[2020-11-29 15:07] LABS: Troponin I <0.015 ng/mL (0.000-0.040)
[2020-11-29 15:39] LABS: Albumin, Blood 1.8 g/dL (3.4-5.0); Albumin/Globulin Ratio 0.3 (0.8-1.8); Bilirubin, Total 1.6 mg/dL (0.1-1.0); Bun/Creatinine Ratio 12.4 (12.0-20.0); Calcium, Blood 7.9 mg/dL (8.5-10.1); Creatinine, Blood 2.33 mg/dL (0.40-1.00); Globulin, Blood 5.4 g/dL (2.2-4.0); Total Protein, Blood 7.2 g/dL (6.4-8.2)
[2020-11-29 16:09] LABS: SARS-Cov-2 (COVID-19) PCR, MMC NEGATIVE (NEGATIVE)
[2020-11-30 04:41] LABS: BASOPHILS ABSOLUTE AUTO 0.06 K/mm3 (0.00-0.23); BASOPHILS PERCENT AUTO 1 % (0-2); EOSINOPHILS ABSOLUTE AUTO 0.05 K/mm3 (0.00-0.68); EOSINOPHILS PERCENT AUTO 1 % (0-6); Hematocrit 26.4 % (33.0-51.0); IMMATURE GRAN ABSOLUTE AUTO 0.03 K/mm3 (0.00-0.10); IMMATURE GRAN PERCENT AUTO 0 % (0-1); LYMPHOCYTES PERCENT AUTO 19 % (21-46); MONOCYTES ABSOLUTE AUTO 0.51 K/mm3 (0.16-1.47); MONOCYTES PERCENT AUTO 7 % (4-13); Mean Corpuscular HGB 28.7 pg (26.0-34.0); Mean Corpuscular HGB Conc 34.1 g/dL (31.5-36.5); Mean Corpuscular Volume 84 fL (80-100); Mean Platelet Volume 11.7 fL (9.1-12.4); NEUTROPHILS ABSOLUTE AUTO 5.62 K/mm3 (1.96-9.15); NEUTROPHILS PERCENT AUTO 72 % (41-73); Platelet Count 125 K/mm3 (150-400); RDW Coefficient Variation 14.5 % (11.7-14.2); RDW Standard Deviation 43.3 fL (35.1-46.3); Red Blood Cell Count 3.14 M/mm3 (3.80-5.20); White Blood Cell Count 7.77 K/mm3 (4.00-11.30)
[2020-11-30 05:06] LABS: Albumin/Globulin Ratio 0.4 (0.8-1.8); Bilirubin, Total 2.6 mg/dL (0.1-1.0); Bun/Creatinine Ratio 12.8 (12.0-20.0); Calcium, Blood 8.7 mg/dL (8.5-10.1); Creatinine, Blood 2.26 mg/dL (0.40-1.00); Globulin, Blood 4.9 g/dL (2.2-4.0); Potassium, Blood 3.3 mmol/L (3.5-5.5); Total Protein, Blood 6.9 g/dL (6.4-8.2)
--- NOTE | 2020-11-30 06:42 | NUR ---
SHIFT SUMMARY PATIENT ALERT AND ORIENTED TO SELF AND FAMILY. SHE HAD NO COMPLAINTS OF PAIN OR SHORTNESS OF BREATH. ACCIDENTALLY PULLED HER RECTAL TUBE OUT AFTER RECEIVING A LACTULOSE ENEMA AND SELF AMBULATING TO THE RESTROOM. IV PATENT AND FLUSHED. BED IN LOWEST POSITION WITH WHEELS LOCKED AND ALARM ON. CALL LIGHT WITHIN REACH. REPORT GIVEN TO ONCOMING RN.
--- NOTE | 2020-11-30 14:09 | NUR ---
TRANSFERING CARE OVER. PT HAS BEEN AOX2-3 WITH SOME MILD CONFUSION. PT TAKING ORAL MEDICATION WELL AND WAS ABLE TO REQUEST TO USE COMMODE. PT DENIES PAIN AT THIS TIME. CALL LIGHT IS WITHIN REACH AND BED ALARM IN PLACE.
[2020-11-30 14:59] LABS: Albumin, Blood 1.8 g/dL (3.4-5.0); Anion Gap 12 mmol/L (6-16); Blood Urea Nitrogen 30 mg/dL (8-24); Bun/Creatinine Ratio 12.6 (12.0-20.0); CO2, Blood 27 mmol/L (21-32); Calcium, Blood 8.8 mg/dL (8.5-10.1); Chloride, Blood 94 mmol/L (98-108); Creatinine, Blood 2.38 mg/dL (0.40-1.00); Glomerular Filtration Rate 21 (60-); Glucose, Blood 281 mg/dL (70-99); Phosphorus, Blood 3.7 mg/dL (2.5-4.9); Potassium, Blood 3.2 mmol/L (3.5-5.5); Sodium, Blood 133 mmol/L (136-145)
--- NOTE | 2020-11-30 18:23 | NUR ---
SHIFT SUMMARY PATIENT HAS BEEN INCREASINGLY MORE ALERT THIS SHIFT. PATIENT IS ALERT AND ORIENTED X4. PATIENT HAS HAD NO COMPLAINTS OF PAIN, NAUSEA, SOB THIS SHIFT. PATIENT HAD A RECTAL TUBE THIS AM AND ACCIDENTALLY PULLED IT OUT, WAS SWITCHED OVER TO ORAL LACTULOSE. BED IS IN LOCKED AND LOWEST POSITION AND WILL CONTINUE TO MONITOR UNTIL END OF SHIFT.
[2020-12-01 05:34] LABS: BASOPHILS ABSOLUTE AUTO 0.06 K/mm3 (0.00-0.23); BASOPHILS PERCENT AUTO 1 % (0-2); EOSINOPHILS ABSOLUTE AUTO 0.09 K/mm3 (0.00-0.68); EOSINOPHILS PERCENT AUTO 1 % (0-6); Hematocrit 26.4 % (33.0-51.0); Hemoglobin 8.8 g/dL (11.5-16.0); IMMATURE GRAN ABSOLUTE AUTO 0.02 K/mm3 (0.00-0.10); IMMATURE GRAN PERCENT AUTO 0 % (0-1); LYMPHOCYTES ABSOLUTE AUTO 1.75 K/mm3 (0.84-5.20); LYMPHOCYTES PERCENT AUTO 28 % (21-46); MONOCYTES ABSOLUTE AUTO 0.54 K/mm3 (0.16-1.47); MONOCYTES PERCENT AUTO 9 % (4-13); Mean Corpuscular HGB 28.6 pg (26.0-34.0); Mean Corpuscular HGB Conc 33.3 g/dL (31.5-36.5); Mean Corpuscular Volume 86 fL (80-100); Mean Platelet Volume 11.6 fL (9.1-12.4); NEUTROPHILS ABSOLUTE AUTO 3.89 K/mm3 (1.96-9.15); NEUTROPHILS PERCENT AUTO 61 % (41-73); Platelet Count 110 K/mm3 (150-400); RDW Coefficient Variation 14.9 % (11.7-14.2); RDW Standard Deviation 44.6 fL (35.1-46.3); Red Blood Cell Count 3.08 M/mm3 (3.80-5.20); White Blood Cell Count 6.35 K/mm3 (4.00-11.30)
[2020-12-01 05:58] LABS: Albumin, Blood 1.9 g/dL (3.4-5.0); Albumin/Globulin Ratio 0.4 (0.8-1.8); Bun/Creatinine Ratio 12.6 (12.0-20.0); Calcium, Blood 8.3 mg/dL (8.5-10.1); Creatinine, Blood 2.38 mg/dL (0.40-1.00); Globulin, Blood 4.6 g/dL (2.2-4.0); Total Protein, Blood 6.5 g/dL (6.4-8.2)
--- NOTE | 2020-12-01 06:26 | NUR ---
SHIFT SUMMARY PATIENT ALERT AND ORIENTED X 2-3. NO COMPLAINTS OF PAIN OR SHORTNESS OF BREATH. TELEMETRY REPORTS PATIENT'S HR HAS BEEN TACHING UP TO THE 130'S BUT NOT SUSTAINING. VITALS TAKEN, PATIENT ASYMPTOMATIC. BED IN LOWEST POSITION WITH WHEELS LOCKED AND ALARM ON. CALL LIGHT WITHIN REACH. REPORT GIVEN TO ONCOMING RN.
[2020-12-01] MEDS ORDERED: ALOGLIPTIN25 M1 PO (11:28)
[2020-12-01] MEDS ORDERED: [UNRECOGNIZED DRUG - OTHER] PO (11:30)
[2020-12-01] MEDS ORDERED: AZAT50 PO (11:31)
[2020-12-01] MEDS ORDERED: BUME2 PO (11:32)
[2020-12-01] MEDS ORDERED: CYMBALTA60 M1 PO (11:33)
[2020-12-01] MEDS ORDERED: Nexium40 M1 PO (11:34)
[2020-12-01] MEDS ORDERED: FOLI1 PO (11:35)
[2020-12-01] MEDS ORDERED: GABA300 PO (11:37)
[2020-12-01] MEDS ORDERED: GLIP5 PO (11:38)
[2020-12-01] MEDS ORDERED: lactulose 20 gram/30 PO (11:39)
[2020-12-01] MEDS ORDERED: SYNTHROID100 MC8 PO (11:40)
[2020-12-01] MEDS ORDERED: METO25ER PO (11:41)
[2020-12-01] MEDS ORDERED: PANT20 PO (11:42)
[2020-12-01] MEDS ORDERED: KLOR-CON 1010 ME1 PO (11:44)
[2020-12-01] MEDS ORDERED: XARELTO10 M1 PO (11:45)
[2020-12-01] MEDS ORDERED: ONGLYZA5 MG PO (11:46)
[2020-12-01] MEDS ORDERED: Aldactone50 MG PO (11:47)
--- NOTE | 2020-12-01 14:31 | NUR ---
PT DISCHARGED AT 1415 ALL PAPERWORK REVIEWED AND EDUCATIONAL MATERIAL SENT WITH PT. PT VERBALIZED UNDERSTANDING. TO TRANSPORT HOME PT ESCORTED OUT VIA WHEELCHAIR. NO DISTRESS NOTED A0X4 AND PLEASANT TO CARE FOR.
== END 2020-12-01 14:15 | disposition home or self-care (01) | DRG 442 ==
LOC: ER 14:00 → MEDS 16:28
PROVIDERS: Physician Assistant; Student in an Organized Health Care Education/Training Program; ADMIT Family Medicine
DX: K72.00 Acute and subacute hepatic failure without coma (principal); N18.4 Chronic kidney disease, stage 4 (severe); K50.90 Crohn's disease, unspecified, without complications; E87.1 Hypo-osmolality and hyponatremia; E03.9 Hypothyroidism, unspecified; F32.9 Major depressive disorder, single episode, unspecified; Z20.822 Contact with and (suspected) exposure to COVID-19; I12.9 Hypertensive chronic kidney disease with stage 1 through stage 4 chronic kidney disease, or unspecified chronic kidney disease; M79.7 Fibromyalgia; I48.0 Paroxysmal atrial fibrillation; E87.6 Hypokalemia; E83.51 Hypocalcemia; E11.22 Type 2 diabetes mellitus with diabetic chronic kidney disease; D63.1 Anemia in chronic kidney disease; Z88.6 Allergy status to analgesic agent; Z88.1 Allergy status to other antibiotic agents; Z88.8 Allergy status to other drugs, medicaments and biological substances; Z90.49 Acquired absence of other specified parts of digestive tract; Z98.890 Other specified postprocedural states; Z98.51 Tubal ligation status; Z79.82 Long term (current) use of aspirin; Z79.01 Long term (current) use of anticoagulants; Z87.891 Personal history of nicotine dependence
CPT/HCPCS: 36415; 70450; 80047; 80053; 80069; 82140; 82248; 82947; 83690; 83735; 84484; 85014; 85025; 85610; 93005; 93010; 96365; 96366; 96368; 96375; 99285-25; A9270; J0610; J2405; J3480; J7050; U0004

== ENCOUNTER 2020-12-05 15:56 | Inpatient (IN) | payer OTHER ==
[~2020-12-05] VITALS: Ht 167.6 cm; Wt 81.6 kg
[~2020-12-05 15:56] MED LIST changes: -ALOGLIPTIN25 M1 PO; -EXTRA PAIN REL1 EAC2 PO; +PANT20 PO; -TUMS500 MG PO; +[UNRECOGNIZED DRUG - OTHER] PO
[2020-12-05 16:35] LABS: BASOPHILS ABSOLUTE AUTO 0.05 K/mm3 (0.00-0.23); BASOPHILS PERCENT AUTO 1 % (0-2); EOSINOPHILS PERCENT AUTO 1 % (0-6); Hematocrit 27.3 % (33.0-51.0); Hemoglobin 9.3 g/dL (11.5-16.0); IMMATURE GRAN ABSOLUTE AUTO 0.04 K/mm3 (0.00-0.10); IMMATURE GRAN PERCENT AUTO 1 % (0-1); LYMPHOCYTES ABSOLUTE AUTO 1.32 K/mm3 (0.84-5.20); LYMPHOCYTES PERCENT AUTO 16 % (21-46); MONOCYTES ABSOLUTE AUTO 0.53 K/mm3 (0.16-1.47); MONOCYTES PERCENT AUTO 7 % (4-13); Mean Corpuscular HGB 28.9 pg (26.0-34.0); Mean Corpuscular HGB Conc 34.1 g/dL (31.5-36.5); Mean Corpuscular Volume 85 fL (80-100); Mean Platelet Volume 11.8 fL (9.1-12.4); NEUTROPHILS ABSOLUTE AUTO 6.06 K/mm3 (1.96-9.15); NEUTROPHILS PERCENT AUTO 75 % (41-73); Platelet Count 172 K/mm3 (150-400); RDW Coefficient Variation 15.2 % (11.7-14.2); RDW Standard Deviation 44.3 fL (35.1-46.3); Red Blood Cell Count 3.22 M/mm3 (3.80-5.20)
[2020-12-05 17:21] LABS: Alanine Aminotransfer (ALT/SGP 33 U/L (12-78); Albumin/Globulin Ratio 0.3 (0.8-1.8); Alk Phos 115 U/L (50-136); Anion Gap 10 mmol/L (6-16); Aspartate Aminotrans (AST/SGOT 33 U/L (12-37); Bilirubin, Total 1.9 mg/dL (0.1-1.0); Blood Urea Nitrogen 32 mg/dL (8-24); Bun/Creatinine Ratio 10.4 (12.0-20.0); CO2, Blood 29 mmol/L (21-32); Calcium, Blood 8.7 mg/dL (8.5-10.1); Chloride, Blood 94 mmol/L (98-108); Creatinine, Blood 3.08 mg/dL (0.40-1.00); Ethanol (Alcohol), Blood, Med <3 mg/dL; Globulin, Blood 5.8 g/dL (2.2-4.0); Glomerular Filtration Rate 15 (60-); Glucose, Blood 218 mg/dL (70-99); Potassium, Blood 2.9 mmol/L (3.5-5.5); Sodium, Blood 133 mmol/L (136-145); Total Protein, Blood 7.8 g/dL (6.4-8.2)
[2020-12-05] MEDS ORDERED: EXTRA PAIN REL1 EAC2 PO (17:22)
[2020-12-05] MEDS ORDERED: AZAT50 PO (17:23)
[2020-12-05] MEDS ORDERED: ALOGLIPTIN25 M1 PO (17:23)
[2020-12-05] MEDS ORDERED: BUME1 PO (17:24)
[2020-12-05] MEDS ORDERED: CYMBALTA60 M1 PO (17:24)
[2020-12-05] MEDS ORDERED: FOLI1 PO (17:25)
[2020-12-05] MEDS ORDERED: ESOMEPRAZOLE MA40 MG PO (17:25)
[2020-12-05] MEDS ORDERED: GABA100 PO (17:26)
[2020-12-05] MEDS ORDERED: GLIP5 PO (17:27)
[2020-12-05] MEDS ORDERED: CONSTULOSE10 GM/155 PO (17:28)
[2020-12-05] MEDS ORDERED: SYNTHROID100 MC8 PO (17:29)
[2020-12-05] MEDS ORDERED: METO25ER PO (17:29)
[2020-12-05] MEDS ORDERED: Aldactone50 MG PO (17:31)
[2020-12-05] MEDS ORDERED: KLOR-CON 1010 ME1 PO (17:31)
[2020-12-05] MEDS ORDERED: XARELTO10 M1 PO (17:31)
[2020-12-05] MEDS ORDERED: TUMS500 MG PO (17:34)
[2020-12-05] MEDS ORDERED: BUTALB-CAFF-AC1 EACH PO (17:36)
[2020-12-05] MEDS ORDERED: B-12 COMPL1000 MCG/2 IM (17:38)
[2020-12-05 17:59] LABS: SARS-Cov-2 (COVID-19) PCR, MMC NEGATIVE (NEGATIVE)
[2020-12-05 18:08] LABS: Source, Urine Catheter
[2020-12-05 18:14] LABS: Appearance, Urine Clear (Clear); Bilirubin, Urine Neg (Neg); Blood, Urine Neg (Neg); Color, Urine Yellow (P-Yellow); Glucose Qualitative, Urine Neg (Neg); Ketones, Urine Neg (Neg); Leukocyte Esterase, Urine Neg (Neg); Nitrite, Urine Neg (Neg); Protein, Urine Neg (Neg); Urobilinogen, Urine NORM (Normal)
[2020-12-05 18:33] LABS: U Amphetamine Screen Not Detected; U Barbituate Screen Not Detected; U Benzodiazapine Screen Not Detected; U Buprenorphine Screen Not Detected; U Cannabinoids Screen Not Detected; U Cocaine Screen Not Detected; U Methadone Screen Not Detected; U Methamphetamine Screen Not Detected; U Opiates Screen Not Detected; U Oxycodone Screen Not Detected; U Phencyclidine Screen Not Detected; U Propoxyphene Screen Not Detected
--- NOTE | 2020-12-06 05:05 | NUR ---
PT WAS RECEIVED FROM THE ED WITH DAUGHTER AT SIDE, SLEEPING AND NOT RESPONDING MORE THAN NOISES IN RESPONSE TO ASSESSMENT QUESTIONS. DAUGHTER WAS ABLE TO AID IN ADMISSION. PT IV IS WNL AND INFUSING NS, ENEMA ADMINISTERED LATE DUE TO HEMROIDAL PAIN, PAIN TREATED WITH LIDOCAIN JET AND ENEMA COMPLETE. PT DID JUMP UP TO USE RESTROO AND WAS HURRIED ONTO THE CAMODE. PT WAS CONFUSED BUT FOLLOWED DIRECTIONS. WILL CONTINUE TO MONITOR.
[2020-12-06 05:38] LABS: Albumin, Blood 1.7 g/dL (3.4-5.0); Albumin/Globulin Ratio 0.3 (0.8-1.8); Bilirubin, Total 2.2 mg/dL (0.1-1.0); Calcium, Blood 8.3 mg/dL (8.5-10.1); Creatinine, Blood 2.76 mg/dL (0.40-1.00); Globulin, Blood 5.5 g/dL (2.2-4.0); Total Protein, Blood 7.2 g/dL (6.4-8.2)
--- NOTE | 2020-12-06 18:02 | NUR ---
SHIFT SUMMARY: PT DROWSY AND ORIENTED TO 3 UNAWARE OF DATE WITH SOME DELAYED RESPONSES. PT SEEN BY SPEECH AND APPROVED FOR DIABETIC DIET WITH SUPERVISED FEED DUE TO FATIGUE. PT HAS SLEPT THROUGHOUT DAY. NO APPETITE. HOURLY ROUNDING FOR SAFETY
--- NOTE | 2020-12-07 04:51 | NUR ---
PATIENT ALERT AND RESPONSIVE. DENIES PAIN OR DISCOMFORT. NO SIGNS AND SYMPTOMS OF DISTRESS. PATIENT TOOK HER MEDICATIONS WITH NO ISSUES. INULIN HELD DUE TO BS OF 155, NO COVERAGE NEEDED. KITTY LEGS CONTINUE WITH 2+EDEMA. PATIENT SLEPT WELL ALL NIGHT. WILL CONTINUE TO MONITOR AND ENCOURAGE.
[2020-12-07 08:42] LABS: BASOPHILS ABSOLUTE AUTO 0.05 K/mm3 (0.00-0.23); BASOPHILS PERCENT AUTO 1 % (0-2); EOSINOPHILS ABSOLUTE AUTO 0.15 K/mm3 (0.00-0.68); EOSINOPHILS PERCENT AUTO 2 % (0-6); Hemoglobin 8.7 g/dL (11.5-16.0); IMMATURE GRAN ABSOLUTE AUTO 0.03 K/mm3 (0.00-0.10); IMMATURE GRAN PERCENT AUTO 1 % (0-1); LYMPHOCYTES ABSOLUTE AUTO 1.59 K/mm3 (0.84-5.20); LYMPHOCYTES PERCENT AUTO 25 % (21-46); MONOCYTES ABSOLUTE AUTO 0.61 K/mm3 (0.16-1.47); MONOCYTES PERCENT AUTO 10 % (4-13); Mean Corpuscular HGB 28.4 pg (26.0-34.0); Mean Corpuscular HGB Conc 32.2 g/dL (31.5-36.5); Mean Corpuscular Volume 88 fL (80-100); Mean Platelet Volume 11.3 fL (9.1-12.4); NEUTROPHILS ABSOLUTE AUTO 3.98 K/mm3 (1.96-9.15); NEUTROPHILS PERCENT AUTO 62 % (41-73); Platelet Count 174 K/mm3 (150-400); RDW Coefficient Variation 15.8 % (11.7-14.2); RDW Standard Deviation 48.1 fL (35.1-46.3); Red Blood Cell Count 3.06 M/mm3 (3.80-5.20); White Blood Cell Count 6.41 K/mm3 (4.00-11.30)
[2020-12-07 09:04] LABS: Albumin, Blood 1.7 g/dL (3.4-5.0); Albumin/Globulin Ratio 0.3 (0.8-1.8); Bilirubin, Total 2.8 mg/dL (0.1-1.0); Bun/Creatinine Ratio 11.8 (12.0-20.0); Calcium, Blood 8.4 mg/dL (8.5-10.1); Creatinine, Blood 2.87 mg/dL (0.40-1.00); Globulin, Blood 5.6 g/dL (2.2-4.0); Potassium, Blood 2.9 mmol/L (3.5-5.5); Total Protein, Blood 7.3 g/dL (6.4-8.2)
--- NOTE | 2020-12-07 17:45 | NUR ---
PATIENT IS ALERT AND ORIENTED X4. PATIENT HAS BEEN PLEASENT AND COOPERATIVE WITH CARE. PATIENT HAS BEEN INCREASINGLY MORE ALERT DURING SHIFT. PATIENT HAS BEEN RECEIVING Q4 LACTULOSE ORAL MEDICATION. PATIENT PREFERS LACTULOSE WITH CRANBERRY JUICE. NO ACUTE EVENTS THIS SHIFT. VITAL SIGNS REVIEWED AND WILL CONTINUE TO MONITOR UNTIL SHIFT CHANGE.
--- NOTE | 2020-12-08 06:40 | NUR ---
PATIENT IS ALERT AND RESPONSIVE. DENIES PAIN OR ANY DISTRESS. DENIES SOB. PLEASANT AND COOPERATIVE. NOTED WITH INCREASE MENTATION, NO CONFUSION NOTED. CONTINUE TO MONITOR AND ENCOURAGE.
[2020-12-08 09:17] LABS: Albumin, Blood 1.7 g/dL (3.4-5.0); Anion Gap 9 mmol/L (6-16); Blood Urea Nitrogen 36 mg/dL (8-24); Bun/Creatinine Ratio 12.2 (12.0-20.0); CO2, Blood 27 mmol/L (21-32); Calcium, Blood 8.1 mg/dL (8.5-10.1); Chloride, Blood 96 mmol/L (98-108); Creatinine, Blood 2.94 mg/dL (0.40-1.00); Glomerular Filtration Rate 16 (60-); Glucose, Blood 209 mg/dL (70-99); Phosphorus, Blood 3.9 mg/dL (2.5-4.9); Potassium, Blood 2.7 mmol/L (3.5-5.5); Sodium, Blood 132 mmol/L (136-145)
--- NOTE | 2020-12-08 16:30 | NUR ---
SHIFT SUMMARY PATIENT IS ALERT AND ORIENTATED X4. PATIENT HAS BEEN PLEASENT AND COOPERATIVE WITH CARE. PATIENT HAS BEEN AWAKE AND CONVERSATIONAL DURING SHIFT. PATIENT HAS HAD LACTULOSE CHANGED FROM Q6 TO Q8. PATIENTS IV WAS REMOVED AFTER IT HAD INFLITRATED. DID NOT INSERT A NEW IV DUE TO DR ORDERS THAT IT WAS UNNEEDED FOR REST OF STAY. VITAL SIGNS REVIEWED. CALL LIGHT IN PLACE. WILL CONTINUE TO MONITOR UNTIL END OF SHIFT.
[2020-12-09 05:41] LABS: Albumin, Blood 1.6 g/dL (3.4-5.0); Albumin/Globulin Ratio 0.3 (0.8-1.8); Bilirubin, Total 1.9 mg/dL (0.1-1.0); Bun/Creatinine Ratio 12.4 (12.0-20.0); Calcium, Blood 8.1 mg/dL (8.5-10.1); Creatinine, Blood 2.83 mg/dL (0.40-1.00); Globulin, Blood 5.2 g/dL (2.2-4.0); Potassium, Blood 2.7 mmol/L (3.5-5.5); Total Protein, Blood 6.8 g/dL (6.4-8.2)
--- NOTE | 2020-12-09 07:22 | NUR ---
PATIENT IS ALERT AND RESPONSIVE. DENIES PAIN OR ANY DISCOMFORT. PATIENT IS PLEASANT AND COOPERATIVE. DENIES VOMITING, COUGHING OR ANY DISTRESS. TOOK ALL MEDICATIONS WITHOUT ANY ISSUE. PATIENT DENIES SOB, NOTED WITH INPROVED MENTATION. WILL CONTINUE TO MONITOR.
--- NOTE | 2020-12-09 18:56 | NUR ---
Alert and oriented x3, able to make needs known. Denies any pain. vital signs are stable. one person assist with ADLs. Denies any headache , dizziness and nausea. Continue on lactose and was effective. No changes in LOC.Insulin coverage was given for blood glucose coverage , no adverse effects. AWAITING Medicare approval for prescription medication pior to discharge, daughter notified . continue to monitor.
--- NOTE | 2020-12-10 05:38 | NUR ---
ENDOF SHIFT [facility] PATIENT HAD A FAIR SHIFT, VITALS WERE STABLE BUUT THE BP IS ON THE LOW MARGIN. PATIENT NOT HAVING ANY SYMPTOMS.
[2020-12-10 05:49] LABS: Albumin, Blood 1.6 g/dL (3.4-5.0); Albumin/Globulin Ratio 0.3 (0.8-1.8); Bilirubin, Total 2.1 mg/dL (0.1-1.0); Bun/Creatinine Ratio 11.8 (12.0-20.0); Calcium, Blood 7.8 mg/dL (8.5-10.1); Creatinine, Blood 2.79 mg/dL (0.40-1.00); Globulin, Blood 4.9 g/dL (2.2-4.0); Potassium, Blood 2.7 mmol/L (3.5-5.5); Total Protein, Blood 6.5 g/dL (6.4-8.2)
--- NOTE | 2020-12-10 11:16 | NUR ---
Update 12/10/20: Per chart review, pt. appropriate for D/C today. [place] with care management has completed A prior auth for medications. Per discussion with care management, pt. has requested [facility]. Contacted Sharon with [facility] and requested that she work with patient and daughter to coordinate a time for initial visit. Home health has been requested for pt. previously at time of discharge, but family declined visits. Pt. scheduled with PCP Dr. Osborne on 12/17/20 at 2:40 PM for hospital F/U appt. Pt. given D/C letter with appt. info. No further needs identified at this time.
[2020-12-10] MEDS ORDERED: RIFA550T2 PO (12:48)
--- NOTE | 2020-12-10 13:36 | NUR ---
Met pt.in bed and on phone, pt. reports that she may go home today or gomez, encouraged pt prayer and spiritual support.
--- NOTE | 2020-12-10 14:53 | NUR ---
Alert and oriented x3 , able to make needs known . Denies any pain, nausea, headache, dizziness and fever. Ambulate independently to bathroom. Metroprolol was held this morning due to low BP , PATIENT WAS ASYMPTOMATIC. Continue rifaximin po , no adverse effects noted. Pt was discharged home with home health order, new prescription Rifaximin ordered . She acknowledge DC instruction and left hospital in stable condition.
== END 2020-12-10 13:50 | disposition home health service (06) | DRG 442 ==
LOC: ER 15:56 → MEDS 19:09
PROVIDERS: Emergency Medicine; Internal Medicine Endocrinology, Diabetes & Metabolism; Physician Assistant; ADMIT Internal Medicine
DX: K72.00 Acute and subacute hepatic failure without coma (principal); B19.10 Unspecified viral hepatitis B without hepatic coma; N18.4 Chronic kidney disease, stage 4 (severe); R18.8 Other ascites; K50.90 Crohn's disease, unspecified, without complications; Z66 Do not resuscitate; I48.0 Paroxysmal atrial fibrillation; E03.9 Hypothyroidism, unspecified; E11.22 Type 2 diabetes mellitus with diabetic chronic kidney disease; E87.6 Hypokalemia; D63.1 Anemia in chronic kidney disease; F32.9 Major depressive disorder, single episode, unspecified; K74.60 Unspecified cirrhosis of liver; Z98.51 Tubal ligation status; Z90.49 Acquired absence of other specified parts of digestive tract; Z98.890 Other specified postprocedural states; Z88.8 Allergy status to other drugs, medicaments and biological substances; Z79.01 Long term (current) use of anticoagulants; Z79.84 Long term (current) use of oral hypoglycemic drugs; Z79.899 Other long term (current) drug therapy
CPT/HCPCS: 36415; 51701; 70450; 71045; 80053; 80069; 81003; 82140; 82947; 84443; 85025; 92610; 93005; 93010; 99285-25; A9270; G0480; J1815; J3480; J7030; J7500; U0004

== ENCOUNTER → 2021-02-04 | Outpatient (CLI) | payer OTHER ==
[~2021-02-04] MED LIST changes: +ALOGLIPTIN25 M1 PO; +Aldactone50 MG PO; +BUME1 PO; +BUTALB-CAFF-AC1 EACH PO; +CONSTULOSE10 GM/155 PO; +CYMBALTA60 M1 PO; +ESOMEPRAZOLE MA40 MG PO; +EXTRA PAIN REL1 EAC2 PO; +KLOR-CON 1010 ME1 PO; +RIFA550T2 PO; +SYNTHROID100 MC8 PO; +TUMS500 MG PO; +XARELTO10 M1 PO
== END | disposition home or self-care (01) ==
LOC: LAB SHORT 06:43 → LAB 06:43
DX: K74.60 Unspecified cirrhosis of liver (principal); N18.5 Chronic kidney disease, stage 5; D64.9 Anemia, unspecified
CPT/HCPCS: 86335

== ENCOUNTER → 2021-02-11 | Outpatient (CLI) | payer OTHER ==
[2021-02-11 12:30] LABS: Appearance, Urine Clear (Clear); Bilirubin, Urine Neg (Neg); Blood, Urine 1+ (Neg); Color, Urine Yellow (P-Yellow); Glucose Qualitative, Urine Neg (Neg); Ketones, Urine Neg (Neg); Leukocyte Esterase, Urine Neg (Neg); Nitrite, Urine Neg (Neg); Protein, Urine Neg (Neg); Urobilinogen, Urine NORM (Normal)
[2021-02-11 12:49] LABS: Bacteria Rare /hpf; Creatinine, Urine Random 37.4 mg/dL (27.00-270.00); Protein, Urine Random 24.8 mg/dL (0.0-11.9); Protein/Creat Ratio, Ur Random 0.7; Squamous Epithelial Cells Few /hpf (Few); White Blood Cells, Urine 0-2 /hpf (0-5)
[2021-02-11 12:50] LABS: Granular Casts 0-2 /lpf (0); Hyaline Casts 0-2 /lpf (0-2)
== END ==
LOC: LAB 06:30 → LAB SHORT 06:30
PROVIDERS: Internal Medicine
DX: N18.5 Chronic kidney disease, stage 5 (principal); D64.9 Anemia, unspecified; K74.60 Unspecified cirrhosis of liver
CPT/HCPCS: 81001; 82570; 84156; 84300